=== PATIENT | female | born 1955 | race Caucasian/White ===

== ENCOUNTER 2024-07-30 14:54 | Inpatient (IN) ==
[2024-07-30 17:50] LABS: Basophils # (auto) 0.03 K/uL (0.00-0.20); Basophils % (auto) 0.2 %; Eosinophils # (auto) 0.08 K/uL (0.00-0.50); Eosinophils % (auto) 0.6 %; Hematocrit (blood only) 43.1 % (37.0-47.0); Hemoglobin 13.8 g/dl (12.0-16.0); Immature Granulocytes # (auto) 0.08 K/uL (0.01-0.20); Immature Granulocytes % (auto) 0.6 %; Lymphocytes # (auto) 2.13 K/uL (1.20-3.40); Lymphocytes % (auto) 14.8 %; Mean Corpuscular Hemoglobin 28.6 pg (25.0-34.0); Mean Corpuscular Volume 89.4 fL (80.0-100.0); Mean Platelet Volume 9.5 fL (9.4-12.4); Monocytes # (auto) 0.56 K/uL (0.11-0.59); Monocytes % (auto) 3.9 %; Neutrophils # (auto) 11.49 K/uL (1.40-6.50); Neutrophils % (auto) 79.9 %; Platelet Count 281 K/uL (130-400); RDW Coefficient of Variation 16.1 % (11.5-14.5); RDW Standard Deviation 52.2 fL (36.4-46.3); Red Blood Count 4.82 M/uL (4.20-5.40); White Blood Count 14.37 K/ul (4.8-10.8)
[2024-07-30 18:08] LABS: Albumin Globulin Ratio 1.3 (0.9-2); Albumin Level 4.1 gm/dl (3.4-5.0); Bilirubin,Total 0.5 mg/dl (0.2-1.0); Calcium 9.8 mg/dl (8.6-10.3); Creatinine Clr Calc Pharmacy 99.8 ml/min; Globulin 3.2 gm/dl (2.5-4.0); Potassium 4.1 mmol/L (3.5-5.1); Total Protein 7.3 gm/dl (6.0-8.3)
--- NOTE | 2024-07-30 19:45 | XRay Report ---
Exam(s): XR RIGHT HAND, 2 views EXAM: XR Right Hand, 2 Views CLINICAL HISTORY: Reason for exam: R index finger injury. TECHNIQUE: Frontal and lateral views of the right hand. COMPARISON: No relevant prior studies available. FINDINGS: Bones/joints: No fracture or malalignment. Degenerative changes at the first CMC joint. Soft tissues: Soft tissue wound to the tip of the second finger. No radiopaque foreign body. IMPRESSION: 1. Soft tissue wound to the tip of the second finger. No radiopaque foreign body. 2. No fracture or malalignment. Electronically signed by: Liborio Mcpherson MD 07/30/24 19:44 PM
[2024-07-30] MEDS: ceFAZolin 2000MG 2,000 MG/15 ML SYR IV STA (19:53)
--- NOTE | 2024-07-30 20:45 | History & Physical Report ---
Date of Service July 30, 2024 Assessment & Plan (1) Cellulitis of finger of right hand: (2) Laceration of right index finger: (3) Diabetes mellitus, type 2: (4) HMG-CoA myositis: (5) Hypertension: (6) Hyperlipidemia: (7) Hypothyroidism: Plan: Possible sepsis. Meets SIRS criteria HPI, ROS, PE, PMH, Social history, med rec completed by RICARDO Byrd Assessment and Plan per Dr Xiao. See addendum. 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 Patient reports approximately 1 week ago cut her finger on food technologist blade. States cleaned area with soap and water and applied with Vaseline and dressing. States 4 days ago started to have drainage from laceration site and noted erythema and edema to finger. Erythema and edema have progressed and has noted red streaking up her arm. States finger is minimally tender, worse with palpation. Has limited ROM of right index finger since finger started swelling. Denies fever/chills, diaphoresis, N/V/D/C, CASTREJON, dizziness, CP, SOB, palpitations, cough, rhinorrhea, abdominal pain, paresthesias, weakness, BLE extremity edema, other rashes, urinary symptoms. In ER given tetanus shot, doxycycline, Ancef. Allergies Allergy/AdvReac Type Severity Reaction Status Date / Time [id number] Reductase Allergy Intermediate Muscle Pain Verified 07/03/24 08:57 Inhibitor Influenza Virus Vaccines AdvReac Intermediate Gastrointestinal Verified 07/30/24 19:57 Upset Home Medications Medication Instructions Recorded Confirmed Type ascorbic acid (vitamin C) 250 mg 250 mg PO QAM 06/12/24 07/30/24 History tablet (Vitamin C) cholecalciferol (vitamin D3) 25 25 mcg PO DAILY 06/12/24 07/30/24 History mcg (1,000 unit) chewable tablet (Vitamin D3) cyanocobalamin (vitamin B-12) 100 100 mcg PO DAILY 06/12/24 07/30/24 History mcg tablet ezetimibe 10 mg tablet 10 mg PO PM 06/12/24 07/30/24 History folic acid 1 mg tablet 1 mg PO QAM 06/12/24 07/30/24 History inclisiran 284 mg/1.5 mL 1.5 mg subcut UD 06/12/24 07/30/24 History subcutaneous syringe (Leqvio) levothyroxine 75 mcg tablet 75 mcg PO QAM 06/12/24 07/30/24 History losartan 50 mg tablet 50 mg PO QAM 06/12/24 07/30/24 History omeprazole 20 mg tablet,delayed 20 mg PO QAM 06/12/24 07/30/24 History release glipizide 5 mg tablet 2.5 mg PO .DAILY W/ PREDNISONE 07/30/24 07/30/24 History metformin 500 mg tablet,extended 1,000 mg PO QDD 07/30/24 07/30/24 History release 24 hr methotrexate sodium 2.5 mg tablet 15 mg PO WK 07/30/24 07/30/24 History oxybutynin chloride 5 mg 5 mg PO QAM 07/30/24 07/30/24 History tablet,extended release 24 hr prednisone 20 mg tablet 20 mg PO QAM 07/30/24 07/30/24 History Past Med/Surg History Problem List Laceration of right index finger Cellulitis of finger of right hand Medical History HMG-CoA myositis Overactive bladder 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 per pt, no stroke hx > no cane or walker History of COVID-19 Diabetes mellitus, type 2 Hypothyroidism GERD (gastroesophageal reflux disease) Hyperlipidemia Hypertension Surgical History Hx of cataract extraction right History of esophagogastroduodenoscopy (EGD) History of colonoscopy History of section x3 Hx of gastric bypass History of tooth extraction History of tonsillectomy Family History Father Hypertension Social History Smoking Status: Never smoker Second Hand Exposure: No; Do You Dip or Chew Tobacco: No; Hx Alcohol Use: No Hx Substance Use: No Preferred Language: Albanian Communication Ability: Effective Technician Automated Equipment Required: No Beliefs That Will Affect Care: None Current Living Situation: Spouse Feels Safe at Home: Yes Assistive Devices: None Review of Systems Review of Systems: All systems reviewed & are unremarkable except as noted in HPI & below Physical Exam Physical Exam: General: no distress, obese Head: normocephalic, atraumatic Eyes: conjunctiva non-injected, anicteric ENT: normal inspection external ears, nose, mucous membranes moist Neck: supple, trachea midline Lungs: clear, no respiratory distress, no wheezing/rhonchi/rales CV: tachycardia, rate 104, regular rhythm, no murmur, no pretibial edema Abd: protuberant, normal BS, soft, non-tender Ext: RUE: Right hand: index finger with diffuse edema and erythema, dorsal surface over DIP with open laceration with purulent drainage, +red streaking up dorsal surface wrist and up forearm, limited flexion and extension of DIP and PIP joints of index finger. Remaining fingers with normal appearance. LE without no cyanosis, no calf tenderness Neuro: A&O x 3, no focal deficits noted, normal affect Skin: warm, dry. as above in right hand Results & Data Results & Data Vital Signs (Past 12 Hours) Vital Signs Temp Pulse Resp BP Pulse Ox O2 Del Method 07/30/24 20:17 101 H 07/30/24 15:08 36.6 C 99 H 18 148/92 H 97 Room Air Laboratory Results Short CBC 07/30/24 Range/Units 17:36 WBC 14.37 H (4.8-10.8) K/ul Hgb 13.8 (12.0-16.0) g/dl Hct 43.1 (37.0-47.0) % Plt Count 281 (130-400) K/uL BMP 07/30/24 17:36 Sodium 141 Potassium 4.1 Chloride 107 Carbon Dioxide 25 BUN 18 Creatinine 0.62 Glucose 157 H Calcium 9.8 Liver Function 07/30/24 Range/Units 17:36 Total Bilirubin 0.5 (0.2-1.0) mg/dl AST 15 (13-39) U/L ALT 25 (7-52) U/L Alkaline Phosphatase 68 (34-104) U/L Albumin 4.1 (3.4-5.0) gm/dl Diagnostic Findings Hand X-Ray 07/30/24 18:05 Exam(s): XR RIGHT HAND, 2 views EXAM: XR Right Hand, 2 Views CLINICAL HISTORY: Reason for exam: R index finger injury. TECHNIQUE: Frontal and lateral views of the right hand. COMPARISON: No relevant prior studies available. FINDINGS: Bones/joints: No fracture or malalignment. Degenerative changes at the first CMC joint. Soft tissues: Soft tissue wound to the tip of the second finger. No radiopaque foreign body. IMPRESSION: 1. Soft tissue wound to the tip of the second finger. No radiopaque foreign body. 2. No fracture or malalignment. Electronically signed by: Liborio Mcpherson MD 07/30/24 19:44 PM Supervising Physician Co-Signing Physician Notes IM ATTENDING : Patient seen and examined. History obtained from patient and records. Concur with salient points upon review of preceding documentation by Ms. Jessica Chaidez PA-C. I take responsibility for plan of care below. FINAL ASSESSMENT AND PLAN as follows : Sepsis secondary to traumatic right finger cellulitis Immunocompromised patient, history of polymyositis on methotrexate and chronic steroid Rx (decreased nightly steroid dose contemplated next month as per patient on follow-up with specialist) Rule out abscess Hypertension, slightly elevated DM2 on oral medications, well-controlled as of recent outpatient hemoglobin A1c of 7 last June 2024 NAFLD Hyperlipidemia/statin intolerance/allergy Hypothyroidism euthyroid as of recent outpatient TSH MedSurg CS, doxycycline, Zosyn CT hand Orthopedics consult Re: Infected wound right finger N.p.o. after midnight in anticipation of procedure. Hold methotrexate for now given active infection. Continue current nightly prednisone dose at 20 mg (Will request AM provider to contact Dr. Ramos of [facility] in a.m. to inquire about possibly initiating contemplated decrease in daily steroid dose regimen inpatient and consideration of active infection.) Basal bolus insulin adjusted for n.p.o. status, ISS BG goal 1 10-1 40 DVT prophylaxis. SCDs re: possible procedure Full code Text document was generated using [employer] voice recognition software. It may contain grammatical or spelling errors. Kindly contact undersigned for clarification of any documentation item in question. .
[2024-07-30] MEDS: DOXYCYCLINE HYCLATE 100 MG in DEXTROSE 5% MINI-B 100 ML IV STA (21:00)
[2024-07-30] MEDS: DIPHTHERIA/TETANUS TOX ADSORB VACCINE (Td) 0.5 ML SYR/VIAL IM ONE (21:01)
--- OUTSIDE RECORDS SUMMARY | 2024-07-30 21:35 | External Medical Summary | Summary of Care ---
Author Name Unknown Organization [facility] Address [address] [place] [address] Phone [phone] Care Team Providers Care Health Care Administrator Name Role Phone Ronny Jaimes MD Primary Care Provider + Reason for Visit * Reason Comments eRx-Medication Refill Encounter Details Date Type Department Care Team (Late st Contact Info) Description 07/07/2024 Refill General Internal Medicine [facility] [address] [facility] [place] [id number] Ronny Jaimes MD [address] [facility] [place] [id number] HTN, goal below 140/90 Allergies Active Allergy Reactions Criticality Noted Date Comments Influenza Virus Vaccine Nausea/vomiting 018 Statins Muscle pain High 12/22/2023 +ab documented as of this encounter (statuses as of 07/09/2024) Medications Cholecalciferol (VITAMIN D) 2000 units TabletIndication s:Vitamin D deficiency Take 2,000 Units by mouth at bedtime. 03/16/20 17 Active Cyanocobalamin (B-12) 1000 MCG TABS Take 1 Tab by mouth daily. 30 Tab 04/11/20 18 Active OneTouch Verio w/Device KitIndications:T ype 2 diabetes mellitus with hemoglobin A1c goal of less than 7.0% ([facility]) Use to check sugars fasting in am, 2 hours after lunch and in evening 1 Kit 12/20/19 24 Active OneTouch Verio In Vitro Strip (Glucose Blood)Indication s:Type 2 diabetes mellitus with hemoglobin A1c goal of less than 7.0% (HCC) Use to check sugars fasting in am, 2 hours after lunch and in evening E11.9 100 Strip 11 12/20/19 24 Active OneTouch UltraSoft LancetsIndicatio ns:Type 2 diabetes mellitus with hemoglobin A1c goal of less than 7.0% (HCC) Use to check sugars fasting in am, 2 hours after lunch and in evening 100 Each 1 12/20/19 24 Active 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 90 Tablet 3 12/28/19 24 Active Vitamin C Gummies 125 MG Oral Tablet Chewable (Ascorbic Acid) Take 2 Each by mouth every morning. Active Methotrexate 2.5 MG Oral TabletIndication s:HMG-CoA myositis Take 6 (15mg) tablets once a week 72 Tablet 3 01/24/20 24 Active Omeprazole 20 MG Oral Capsule Delayed Release (PriLOSEC)Indica tions:Belching TAKE 1 CAPSULE BY MOUTH 1 HOUR BEFORE THE FIRST MEAL OF THE DAY 90 Capsule 1 02/08/20 24 Active metFORMIN HCl ER 500 MG Oral Tablet Extended Release 24 Hour (Glucophage XR)Indications:T ype 2 diabetes mellitus with hemoglobin A1c goal of less than 7.0% (HCC) Take 1 Tablet by mouth daily with dinner. 90 Tablet 1 03/16/20 24 Active Ezetimibe 10 MG Oral Tablet (Zetia) Take 1 Tablet by mouth daily. 90 Tablet 3 04/25/20 24 Active Leqvio 284 MG/1.5ML Subcutaneous Solution Prefilled Syringe (Inclisiran Sodium) 05/01/20 24 Active Levothyroxine Sodium 75 MCG Oral Tablet (Levoxyl)Indicat ions:Hypothyroid ism TAKE 1 TABLET BY MOUTH EVERY DAY AT LEAST 30 MIN BEFORE BREAKFAST OR OTHER MEDICATION 30 Tablet 11 05/04/20 24 Active oxyBUTYnin Chloride ER 5 MG Oral Tablet Extended Release 24 Hour (Ditropan XL)Indications:S tress incontinence TAKE 1 TABLET BY MOUTH EVERY DAY IN THE MORNING 90 Tablet 1 05/31/20 24 Active predniSONE 20 MG Oral Tablet (Deltasone)Indic ations:HMG-CoA myositis Take 1 Tablet by mouth in the morning. 90 Tablet 1 06/11/20 24 Active glipiZIDE 5 MG Oral Tablet (Glucotrol)Indic ations:Type 2 diabetes mellitus with hemoglobin A1c goal of less than 7.0% (HCC) Take 1 Tablet by mouth daily. With prednisone 90 Tablet 1 06/26/20 24 Active Losartan Potassium 50 MG Oral Tablet (Cozaar)Indicati ons:HTN, goal below 140/90 TAKE 1 TABLET BY MOUTH EVERY DAY 90 Tablet 3 07/09/20 24 Active Losartan Potassium 50 MG Oral Tablet (Cozaar)Indicati ons:HTN, goal below 140/90 TAKE 1 TABLET BY MOUTH EVERY DAY 90 Tablet 3 07/14/20 23 024 Discontinued documented as of this encounter (statuses as of 07/09/2024) Active Problems Problem Noted Date Diagnosed Date PVC (premature ventricular contraction) 01/18/20 24 Statins contraindicated 01/18/2024 Statin-induced myositis 01/18/2024 DDD (degenerative disc disease), lumbar 05/18/20 GIL (nonalcoholic steatohepatitis) 11/02/2022 Stress incontinence 04/23/2021 Acquired hypothyroidism 04/22/2020 Essential hypertension with goal blood pressure less than 130/80 09/21/2018 Hyperlipidemia with target LDL less than 70 08/01 Vitamin B12 deficiency 04/11/2018 Type 2 diabetes mellitus wit h hemoglobin A1c goal of less than 7.0% 03/22/2017 documented as of this encounter (statuses as of 07/09/2024) Resolved Problems Problem Noted Date Diagnosed Date Resolved Date History of 2019 novel busch virus disease (COVID-19) 10/20/2020 11/28/2023 Fatty liver 04/22/2020 11/02/2022 Epistaxis, recurrent 05/06/2016 019 Acquired deviated nasal septum 05/06/2016 04/03/2019 Generalized osteoarthritis 05/06/2014 0 04/03/2019 Osteoarthrosis, localized, p rimary, involving lower leg 05/06/2014 04/03/2019 Overview (05/04/2021): ICD-10 update of inactive term Osteoarthritis of hand 05/06/201404/03 Hyperlipidemia with target LDL less than 130 3 08/10/2018 Hypothyroidism 01/18/2013 04/22/2020 documented as of this encounter (statuses as of 07/09/2024) Immunizations Name Administration Dates Next Due COVID-19 mRNA, LNP-s, No Pre serve, 2-Dose Series (Moderna) 11/20/2020,10/23/2020 COVID-19, mRNA, LNP-s, PF, B ooster, 100mcg/0.5mg (Moderna) 07/14/2021 Hepatitis B, 20+ yrs 10/21/2009,04/29/2009,03/25 PPD 04/09/2024 TDAP (age 10 and older)(Boostrix) 02/15/2014 Zoster Vaccine Recombinant (Shingrix) 08/04/2021 ,04/23/2021 documented as of this encounter Social History Tobacco Use Types Packs/Day Years Used Date Smoking Tobacco: Never Passive Smoke Exposure: Past Smokeless Tobacco: Never Comments:Passive smoke throu gh father Alcohol Use Standard Drinks/Week Comments No 0 (1 standard drink = 0.6 oz pur e alcohol) PHQ-2 Answer Date Recorded PHQ Adult Total Score 0 11/28/2023 Hunger Vital Sign Answer Date Recorded Within the past 12 months, y ou worried that your food would run out before you got the money to buy more. Never true 12/28/19 24 Within the past 12 months, t he food you bought just didn't last and you didn't have money to get more. Never true 12/28/2023 Childcare Answer Date Recorded Do you feel overwhelmed with taking care of a child, family member or friend? No 12/28/2023 Does your family need help f inding childcare? (Household - for ages 0-17 years) Not on file 12/28/2023 Clothing Answer Date Recorded Have you been unable to get clothing when it was really needed? No 12/28/2023 Is your family able to get c lothes or diapers when needed? (Household - for ages 0-17 years) Not on file 12/28/2023 Personal Safety Answer Date Recorded Do you feel unsafe or have concerns for your saf ety? No 12/28/2023 Do you have concerns for you r family's safety? (Household - for ages 0-17 years) Not on file 12/28/2023 Utilities Answer Date Recorded Do you have trouble paying y our heating, water, or electric bill? No 12/28/2023 Is your family able to pay t he heat, water, or electric bill? (Household - for ages 0-17 years) Not on file 12/28/2023 Does your family have access to good internet? (Household - for ages 0-17 years) Not on file 12/28/2023 Employment Status Answer Date Recorded Are you unemployed or without regular income? No 12/28/2023 Does the household have a re gular source of income? (Household - for ages 0-17 years) Not on file 12/28/2023 Social Connections Answer Date Recorded How often do you feel lonely or isolated from th ose around you? Never 12/28/2023 Financial Resource Strain Answer Date R ecorded Do you have any trouble payi ng for your medications, or do you think you might in the future? No 12/28/2023 Does your family have troubl e paying for medicine? (Household - for ages 0-17 years) Not on file 12/28/2023 Transportation Needs Answer Date Record ed READ ONLY Do you have troubl e getting a ride to medical visits or work? Never True 12/28/2023 Does your family have a hard time getting a ride to doctors visits? (Household - for ages 0-17 years) Not on file 12/28/2023 Has lack of transportation k ept you from medical appointments, meetings, work, or from getting things needed for daily living? Check all that apply. (Adult - for ages 18 years and over) Not on file 12/28/2023 Do you (or your family) have trouble finding or paying for a ride (transportation)? (Household - for ages 0-17 years) Not on file 12/28/2023 Housing Stability Answer Date Recorded Do you currently live in a s helter or have no steady place to sleep at night? Yes 12/28/2023 READ ONLY Do you think you a re at risk of becoming homeless? No 12/28/2023 Does your family worry about paying for your home or becoming homeless? (Household - for ages 0-17 years) Not on file 0 12/28/2023 Are you homeless or worried that you might be in the future? (Adult - for ages 18 years and over) Not on file Are you (or your family) osiel eless or worried that you might be in the future? (Household - for ages 0-17 years) Not on file Food Insecurity Answer Date Recorded Do you need food for this week? No 12/28/2023 Are you able to get enough f ood for your family? (Household - for ages 0-17 years) Not on file 12/28/2023 Does your family need food t his week? (Household - for ages 0-17 years) Not on file 12/28/2023 Do you always have enough fo od for your family? 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 [employer] Not on file Not on file Not on file documented as of this encounter Miscellaneous Notes * Telephone Encounter - Sola Avina [facility] - 07/09/2024 10:35 AM EST Signed Prescriptions: Disp Refills Losartan Potassium 50 MG Oral Tablet (Coza*90 Tab*3 Sig: TAKE 1 TABLET BY MOUTH EVERY DAYAuthorizing Provider: RONNY JAIMES User: SOLA AVINA documented in this encounter Plan of Treatment Upcoming Encounters Date Type Department Care Team (Late st Contact Info) Description 07/12/2024 4:00 PM EST Office Visit General Internal Medicine [facility] [place] [address] [place] [address] Michelle Murillo PA-C [address] [place] [address] 07/20/2024 7:00 AM EST Telemedicine Pharmacy [facility] [address] [place] [address] Pharmacist2, [facility] [address] [place] [address] 08/08/2024 2:15 PM EST Cardiac Studies Cardiac Studies, [facility] [address] [facility] [place] [address] 08/21/2024 8:00 AM EST Office Visit Neurology [facility] [address] [place] [address] Man Ramos, DO [address] [place] [address] 09/13/2024 7:15 AM EST Pharmacy Neurology [facility], [place] [address] [place] [address] [place], Pharmacist Neurology [address], [place] [id number] 09/25/2024 8:00 AM EST Telemedicine Cardiology [facility], [place] [address] [place] [address] [place] [address], Pharmacist Cardiology [facility] [address], [place] [id number] 10/11/2024 8:00 AM EDT Office Visit Cardiology, [facility] [address] [facility] [place] [address] Sara Lunsford PA-C [address] [facility] [place] [address] 03/07/2025 8:15 AM EDT Imaging Radiology [facility] [address] [facility] [place] [address] Health Maintenance Due Date Last Done Comments DXA Scan 1955 Pneumococcal Vaccine: 65+ Years (1 of 2 - PCV) 1961 Cologuard 02/26/2000 Colonoscopy 02/26/2000 Colorectal Cancer Screening 02/26/2000 Fecal Occult Blood Test 02/26/2000 Sigmoidoscopy 02/26/2000 Adult Wellness Visit 2021 Mammogram 11/11/2022 11/11/2021, 04/0 01/2021, 09/18/2019, Additional history exists DTap/Tdap Vaccines (2 - Td or Tdap) 02/16/2024 02/15/2014 COVID-19 Vaccine ( season) 2024 07/14/2021, 11/20/2020, 10/23/2020 Influenza Vaccine (FLU shot) (#1) 2024 Albumin/Creatinine Ratio 05/13/2024 023, 04/28/2022, 08/04/2021, Additional history exists Diabetic Foot Exam 05/18/2024 05/18/2023, 1 , 04/23/2021, Additional history exists Depression Screening 11/27/2024 11/28/2023 TSH 12/06/2024 12/07/2023, 05/01, 01/28/2023, Additional history exists HbA1c 12/10/2024 06/12/2024, 03/02, 03/13/2024, Additional history exists Diabetic Eye Exam 05/24/2025 05/24/2024, , 05/28/2023 (Done elsewhere), Additional history exists GFR 06/12/2025 06/12/2024, 03/02, 03/13/2024, Additional history exists Lipid Panel 03/13/2029 03/13/2024, 12/01, 07/07/2023, Additional history exists Hepatitis B Vaccine Completed 10/21/2009, 04/29/2009, 03/25/2009 Zoster Vaccines Completed 08/04/2021, 04/23/2021 HPV (Gardasil) Vaccine Aged Out No lo nger eligible based on patient's age to complete this topic MENINGOCOCCAL (MENACTRA/MENVEO) Aged Out No longer eligible based on patient's age to complete this topic documented as of this encounter Medical Devices Not on filedocumented as of this encounter Visit Diagnoses Diagnosis HTN, goal below 140/90 Unspecified essential hypertension documented in this encounter Care Teams Health Care Administrator Relationship Specialty Start Date End Date Ronny Jaimes MD [address] [place] [address] PCP - General Internal Medicine 01/18/13 documented as of this encounter
--- OUTSIDE RECORDS SUMMARY | 2024-07-30 21:35 | External Medical Summary | Summary of Care ---
Author Name Unknown Organization [facility] Address [address] [place] [address] Phone [phone] Care Team Providers Care Windsmith Name Role Phone Ronny Butts MD Primary Care Provider + Reason for Visit * Reason Comments Dosage Adjustment In Person (Anticoag Cl inic) Diabetes Follow-Up Encounter Details Date Type Department Care Team (Late st Contact Info) Description 07/20/2024 7:00 AM EST Telemedicine Pharmacy [address] [address] Pharmacist2, [address] [address] Type 2 diabetes mellitus with hemoglobin A1c goal of less than 7.0% ([facility])* Allergies Active Allergy Reactions Criticality Noted Date Comments Influenza Virus Vaccine Nausea/vomiting 018 Statins Muscle pain High 12/22/2023 +ab documented as of this encounter (statuses as of 07/20/2024) Medications Cholecalciferol (VITAMIN D) 2000 units TabletIndication s:Vitamin D deficiency Take 2,000 Units by mouth at bedtime. 7 Active Cyanocobalamin (B-12) 1000 MCG TABS Take 1 Tab by mouth daily. 30 Tab 8 Active OneTouch Verio w/Device KitIndications:T ype 2 diabetes mellitus with hemoglobin A1c goal of less than 7.0% (HCC) Use to check sugars fasting in am, 2 hours after lunch and in evening 1 Kit 4 Active OneTouch Verio In Vitro Strip (Glucose Blood)Indication s:Type 2 diabetes mellitus with hemoglobin A1c goal of less than 7.0% ([facility]) Use to check sugars fasting in am, 2 hours after lunch and in evening E11.9 100 Strip 11 4 Active OneTouch UltraSoft LancetsIndicatio ns:Type 2 diabetes mellitus with hemoglobin A1c goal of less than 7.0% ([facility]) Use to check sugars fasting in am, 2 hours after lunch and in evening 100 Each 1 4 Active 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 90 Tablet 3 4 Active Vitamin C Gummies 125 MG Oral Tablet Chewable (Ascorbic Acid) Take 2 Each by mouth every morning. Active Omeprazole 20 MG Oral Capsule Delayed Release (PriLOSEC)Indica tions:Belching TAKE 1 CAPSULE BY MOUTH 1 HOUR BEFORE THE FIRST MEAL OF THE DAY 90 Capsule 1 4 Active Ezetimibe 10 MG Oral Tablet (Zetia) Take 1 Tablet by mouth daily. 90 Tablet 3 4 Active Leqvio 284 MG/1.5ML Subcutaneous Solution Prefilled Syringe (Inclisiran Sodium) 4 Active Levothyroxine Sodium 75 MCG Oral Tablet (Levoxyl)Indicat ions:Hypothyroid ism TAKE 1 TABLET BY MOUTH EVERY DAY AT LEAST 30 MIN BEFORE BREAKFAST OR OTHER MEDICATION 30 Tablet 11 4 Active oxyBUTYnin Chloride ER 5 MG Oral Tablet Extended Release 24 Hour (Ditropan XL)Indications:S tress incontinence TAKE 1 TABLET BY MOUTH EVERY DAY IN THE MORNING 90 Tablet 1 4 Active predniSONE 20 MG Oral Tablet (Deltasone)Indic ations:HMG-CoA myositis Take 1 Tablet by mouth in the morning. 90 Tablet 1 4 Active Losartan Potassium 50 MG Oral Tablet (Cozaar)Indicati ons:HTN, goal below 140/90 TAKE 1 TABLET BY MOUTH EVERY DAY 90 Tablet 3 4 Active Methotrexate 2.5 MG Oral TabletIndication s:HMG-CoA myositis Take 6 (15mg) tablets once a week 72 Tablet 3 4 Active metFORMIN HCl ER 500 MG Oral Tablet Extended Release 24 Hour (Glucophage XR)Indications:T ype 2 diabetes mellitus with hemoglobin A1c goal of less than 7.0% (HCC) Take 2 Tablets by mouth daily with dinner. 180 Tablet 1 4 Active glipiZIDE 2.5 MG Oral TabletIndication s:Type 2 diabetes mellitus with hemoglobin A1c goal of less than 7.0% (HCC) Take 2.5 mg by mouth daily. With prednisone 30 Tablet 2 4 Active metFORMIN HCl ER 500 MG Oral Tablet Extended Release 24 Hour (Glucophage XR)Indications:T ype 2 diabetes mellitus with hemoglobin A1c goal of less than 7.0% (HCC) Take 1 Tablet by mouth daily with dinner. 90 Tablet 1 4 024 Discontin ued(Refil l) glipiZIDE 5 MG Oral Tablet (Glucotrol)Indic ations:Type 2 diabetes mellitus with hemoglobin A1c goal of less than 7.0% (HCC) Take 1 Tablet by mouth daily. With prednisone 90 Tablet 1 4 024 Discontin ued(Medic ation/Dos e Changed) documented as of this encounter (statuses as of 07/20/2024) Active Problems Problem Noted Date Diagnosed Date [...] as of this encounter (statuses as of 07/20/2024) Resolved Problems Problem Noted Date Diagnosed Date [...] as of this encounter (statuses as of 07/20/2024) Immunizations Name Administration Dates Next Due COVID-19 [...] No 12/28/2023 Does the household have a [facility] [place] source of income? 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 I was in a hospital or clinic location. After connecting through televideo, patient was verified with two unique identifiers. Patient (or authorized legal chain sales representative) wasthen informed that this was a Telemedicine visit and being conducted confidentially over secure lines. Methods to assure confidentiality were taken. Patient acknowledged consent and understanding of privacy and security of the Telemedicine visit. The patient agreed to participate. Medication Therapy Disease Management [facility] - Diabetes Management Progress Note Marcela Richards, identified by name and date of , is a 69 year old female being seen for diabetes management/education. Patient presents for return diabetic visit. DIABETES: Current diabetic medications: Glipizide 5mg - 1 tab in the evening with prednisone Metformin ER 500mg - 1 tab daily Medication Injection Site: N/A Lifestyle: Diet: unchanged Glucose Review/SMBG: Readings per patient memory/recall: Patient is currently testing 1-2 times a day Morning 80-90 After dinner 100-200 Hypoglycemia: Does your blood sugar go below 70 mg/dL? No Hyperglycemia symptoms present: none Recent Labs Units 06/12/24 0728 03/29/24 0949 03/13/24 0711 HEMOGLOBIN A1C - [facility] % 7.0* 7.5* 7.5* Recent Labs Units 06/12/24 0728 03/29/24 0949 03/13/24 0711 ESTIMATED GLOMERULAR FILTRATION RATE - [facility] mL/min >90 >90 >90 CREATININE - [facility] mg/dL 0.6 0.6 0.6 HYPERTENSION: Patient on ACEi/ARB: yes BP Readings from Last 3 Encounters: 07/12/24 114/80 06/05/24 116/76 04/05/24 124/64 Blood pressure at goal: yes HYPERLIPIDEMIA: Recent Labs Units 03/13/24 0711 12/29/23 0756 07/07/23 1048 LDL CHOLESTEROL (CALCULATED) - [facility] mg/dL 118 -- 66 LDL CHOLESTEROL (DIRECT MEASURE) - [facility] mg/dL -- 134* -- Does patient have clinical ASCVD? No, is patient LDL less than 70mg/dL? No: started Leqvio 05/01/24 The 10-year ASCVD risk score (Oscar REBOLLAR, et al., 2019) is: 15.7% Values used to calculate the score: Age: 69 years Sex: Female Is Non- : No Diabetic: Yes Tobacco smoker: No Systolic Blood Pressure: 114 mmHg Is BP treated: Yes HDL Cholesterol: 102 mg/dL Total Cholesterol: 244 mg/dL HEALTH MAINTENANCE REVIEW: Health Maintenance Due Topic Date Due DXA Scan Never done Pneumococcal Vaccine: 65+ Years (1 of 2 - PCV) Never done Colorectal Cancer Screening Never done Adult Wellness Visit Never done Mammogram 11/11/2022 DTap/Tdap Vaccines (2 - Td or Tdap) 02/16/2024 Influenza Vaccine (FLU shot) (1) Never done COVID-19 Vaccine ( season) 2024 Albumin/Creatinine Ratio 05/13/2024 Diabetic Foot Exam 05/18/2024 ASSESSMENT & PLAN: ICD-10-CM 1. Type 2 diabetes mellitus with hemoglobin A1c goal of less than 7.0% (HCC) E11.9 BG Readings - Blood sugars controlled. Per recall AM readings 80-100 and after dinner 100-200. Denies hypoglycemia. Last A1c improved to 7.0 (06/12/24)! Still taking prednisone 20mg daily. Next neurology appt in Aug. Medications - Reviewed current regimen, patient is adherent to regimen. Denies side effects. Increase metformin and reduce glipizide to correct lower trend in the AM. Patient educated to use and adverse effects. Diet, Exercise, Lifestyle - No significant lifestyle changes since last visit. Patient is agreeable to SMBG 1 time(s) daily. Patient aware to contact clinic if any hypoglycemia before next visit. MEDICATION CHANGES: yes, see below; preferred pharmacy: [facility] Diabetic Medications: Decrease: Glipizide 2.5mg - 1 tab in the evening with prednisone Increase: Metformin ER 500mg - 1 tab twice daily HEALTH MAINTENANCE INTERVENTIONS: Labs: Up to Date Immunizations: reminded Foot Exam: Complete with next PCP visit Eye Exam: Up to Date FOLLOW UP: Return to clinic in 2 mos 09/20/2024 I spent a total of 20-29 minutes (exact time 24 mins) on the date of service in preparation, delivery, and documentation of the care provided to Marcela Richards excluding any time spent in the performance of separately billed services. Maribel Gomez RPh Clinical Pharmacist - [employer] Medication Therapy Management Clinic 07/20/2024, 7:01 AM documented in this encounter Plan of Treatment Upcoming Encounters Date Type Department Care Team (Late st Contact Info) Description 08/07/2024 4:15 PM EST Imaging Radiology [facility] 1st [facility], [address] [place] [address] 08/08/2024 2:15 PM EST Cardiac Studies Cardiac Studies, [facility] [address] [facility] [place] [address] 08/21/2024 8:00 AM EST Office Visit Neurology [facility] [address] [place] [address] Man Ramos, DO [address] [place] [address] 09/13/2024 7:15 AM EST Pharmacy Neurology [place] [address] [place] [address] [place], Pharmacist Neurology [address] [place] [address] 09/20/2024 7:30 AM EST Telemedicine Pharmacy [facility] [address] [place] [address] Pharmacist2, [facility] [address] [place], [place] [phone] 09/25/2024 8:00 AM EST Telemedicine Cardiology [facility], [place] [address] [place], [place] [id number] [place] [address], Pharmacist Cardiology [facility] [address] [place] [address] 10/11/2024 8:00 AM EDT Office Visit Cardiology, [facility] 132 [facility] [place] [address] Sara Lunsford PA-C 132 [facility] [place] [address] 01/10/2025 4:00 PM EDT Office Visit General Internal Medicine [facility] [address] [place] [address] Michelle Murillo PA-C [address] [place] [address] 03/07/2025 8:15 AM EDT Imaging Radiology [facility] [place] [address] 04/18/2025 2:00 PM EDT Office Visit General Internal Medicine [facility] [place] [address] [facility] [place] [facility] [place] [address] Ronny Butts MD 200 [facility] [place] [address] Health Maintenance Due Date Last Done Comments DXA Scan 1955 Pneumococcal Vaccine: 65+ Years (1 of 2 - PCV) 1974 Cologuard 02/26/2000 Colonoscopy 02/26/2000 Colorectal Cancer Screening 02/26/2000 Fecal Occult Blood Test 02/26/2000 Sigmoidoscopy 02/26/2000 Adult Wellness Visit 2021 Mammogram 11/11/2022 11/11/2021, 0401/2021, 09/18/2019, Additional history exists DTap/Tdap Vaccines (2 [...] as of this encounter Visit Diagnoses Diagnosis Type 2 diabetes mellitus with hemoglobin A1c goal of less than 7.0% (HCC)- Primary documented in this encounter Care Teams Windsmith Relationship Specialty Start Date End Date Ronny Butts MD 200 [facility] [place] [address] PCP - General Internal Medicine 01/18/13 documented as of this encounter
--- OUTSIDE RECORDS SUMMARY | 2024-07-30 21:35 | External Medical Summary | Summary of Care ---
Author Name Unknown Organization [facility] Address [address] [place] [address] Phone [phone] Care Team Providers Care Casting Inspector Name Role Phone Ronny Butts MD Primary Care Provider + Reason for Visit * Reason Comments eRx-Medication Refill Encounter Details Date Type Department Care Team (Late st Contact Info) Description 07/08/2024 Refill Neurology [facility] [address] [place] [address] Man Ramos, DO [address] [facility] [address] HMG-CoA myositis Allergies Active Allergy Reactions Criticality Noted Date Comments Influenza Virus Vaccine Nausea/vomiting 018 Statins Muscle pain High 12/22/2023 +ab documented as of this encounter (statuses as of 07/09/2024) Medications Cholecalciferol (VITAMIN D) 2000 units TabletIndications :Vitamin D deficiency Take 2,000 Units by mouth at bedtime. 7 Active Cyanocobalamin (B-12) 1000 MCG TABS Take 1 Tab by mouth daily. 30 Tab 8 Active OneTouch Verio w/Device KitIndications:Ty pe 2 diabetes mellitus with hemoglobin A1c goal of less than 7.0% ([facility]) Use to check sugars fasting in am, 2 hours after lunch and in evening 1 Kit 4 Active OneTouch Verio In Vitro Strip (Glucose Blood)Indications :Type 2 diabetes mellitus with hemoglobin A1c goal of less than 7.0% (HCC) Use to check sugars fasting in am, 2 hours after lunch and in evening E11.9 100 Strip 11 4 Active OneTouch UltraSoft LancetsIndication s:Type 2 diabetes mellitus with hemoglobin A1c goal of less than 7.0% (HCC) Use to check sugars fasting in am, 2 hours after lunch and in evening 100 Each 1 4 Active Folic Acid 1 MG Oral TabletIndications :HMG-CoA myositis Take 1 Tablet by mouth in the morning. 90 Tablet 3 4 Active Vitamin C Gummies 125 MG Oral Tablet Chewable (Ascorbic Acid) Take 2 Each by mouth every morning. Active Methotrexate 2.5 MG Oral TabletIndications :HMG-CoA myositis Take 6 (15mg) tablets once a week 72 Tablet 3 4 Active Omeprazole 20 MG Oral Capsule Delayed Release (PriLOSEC)Indicat ions:Belching TAKE 1 CAPSULE BY MOUTH 1 HOUR BEFORE THE FIRST MEAL OF THE DAY 90 Capsule 1 4 Active metFORMIN HCl ER 500 MG Oral Tablet Extended Release 24 Hour (Glucophage XR)Indications:Ty pe 2 diabetes mellitus with hemoglobin A1c goal of less than 7.0% (HCC) Take 1 Tablet by mouth daily with dinner. 90 Tablet 1 4 Active Ezetimibe 10 MG Oral Tablet (Zetia) Take 1 Tablet by mouth daily. 90 Tablet 3 4 Active Leqvio 284 MG/1.5ML Subcutaneous Solution Prefilled Syringe (Inclisiran Sodium) 4 Active Levothyroxine Sodium 75 MCG Oral Tablet (Levoxyl)Indicati ons:Hypothyroidis m TAKE 1 TABLET BY MOUTH EVERY DAY AT LEAST 30 MIN BEFORE BREAKFAST OR OTHER MEDICATION 30 Tablet 11 4 Active oxyBUTYnin Chloride ER 5 MG Oral Tablet Extended Release 24 Hour (Ditropan XL)Indications:St ress incontinence TAKE 1 TABLET BY MOUTH EVERY DAY IN THE MORNING 90 Tablet 1 4 Active predniSONE 20 MG Oral Tablet (Deltasone)Indica tions:HMG-CoA myositis Take 1 Tablet by mouth in the morning. 90 Tablet 1 4 Active glipiZIDE 5 MG Oral Tablet (Glucotrol)Indica tions:Type 2 diabetes mellitus with hemoglobin A1c goal of less than 7.0% (HCC) Take 1 Tablet by mouth daily. 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 on file Not on file documented as of this encounter Miscellaneous Notes * Telephone Encounter - Christine Grider [facility] - 07/09/2024 2:54 PM ESTRefused Prescriptions: Disp Refills Methotrexate Sodium 2.5 MG Oral Tablet 72 Tab*3 Sig: TAKE 6 (15MG) TABLETS BY MOUTH ONCE A WEEK Refused By: CHRISTINE GRIDER Reason for Refusal: Too soon * Telephone Encounter - Ruby Dowell [facility] - 07/09/2024 2:52 PM ESTPending Prescriptions: Disp Refills Methotrexate Sodium 2.5 MG Oral Tablet [Ph*72 Tab*3 Sig: TAKE 6 (15MG) TABLETS BY MOUTH ONCE A WEEK documented in this encounter Plan of Treatment Upcoming Encounters Date Type Department Care Team (Late st Contact Info) Description 07/12/2024 4:00 PM EST Office Visit General Internal Medicine [facility] [address] [place] [address] Michelle Murillo PA-C [address] [place] [address] 07/20/2024 7:00 AM EST Telemedicine Pharmacy [facility] [address] [place], [place] [phone] Pharmacist2, [address] [phone] 08/08/2024 2:15 PM EST Cardiac Studies Cardiac Studies, [address] [place] [address] 08/21/2024 8:00 AM EST Office Visit Neurology [facility] [address] [place] [address] Man Ramos, DO 200 [place] [address] 09/13/2024 7:15 AM EST Pharmacy Neurology [address] [place] [address] [place] Pharmacist Neurology [address] [place] [address] [place] [phone] 09/25/2024 8:00 AM EST Telemedicine Cardiology [facility], [place] [address] [facility] [place] [phone] [place] Pharmacist Cardiology [facility] [place] [phone] 10/11/2024 8:00 AM EDT Office Visit Cardiology, [address] [place] [address] Sara Lunsford PA-C [address] [place] [address] 03/07/2025 8:15 AM EDT Imaging Radiology [facility] [address] [place] [address] Health Maintenance Due Date Last Done Comments DXA Scan 1955 Pneumococcal Vaccine: 65+ Years (1 of 2 - PCV) 1961 Cologuard 02/26/2000 Colonoscopy 02/26/2000 Colorectal Cancer Screening 02/26/2000 Fecal Occult Blood Test 02/26/2000 Sigmoidoscopy 02/26/2000 Adult Wellness Visit 2021 Mammogram 11/11/2022 11/11/2021, 01/2021, 09/18/2019, Additional history exists DTap/Tdap Vaccines (2 - Td or Tdap) 02/16/2024 02/15/2014 COVID-19 Vaccine ( - season) 2024 07/14/2021, 11/20/2020, 10/23/2020 Influenza Vaccine [...] as of this encounter Visit Diagnoses Diagnosis HMG-CoA myositis Mylagia and myositis, unspecified documented in this encounter Care Teams Casting Inspector Relationship Specialty Start Date End Date Ronny Butts MD 200 [facility] [address] PCP - General Internal Medicine 01/18/13 documented as of this encounter
--- OUTSIDE RECORDS SUMMARY | 2024-07-30 21:35 | External Medical Summary | Summary of Care ---
Author Name Unknown Organization [facility] Address [address] [place] [address] Phone [phone] Care Team Providers Care Electroplating Technician Name Role Phone Ronny Butst MD Primary Care Provider + Reason for Visit * Reason Onset Date Comments Order Request 07/12/2024 Encounter Details Date Type Department Care Team (Late st Contact Info) Description 07/12/2024 Telephone General Internal Medicine [facility] 200 [facility] [place] [phone] Michelle Murillo PA-C 200 [place] [address] Order Request Allergies Active Allergy Reactions Criticality Noted Date Comments Influenza Virus Vaccine Nausea/vomiting 018 Statins Muscle pain High 12/22/2023 +ab documented as of this encounter (statuses as of 07/16/2024) Medications Cholecalciferol (VITAMIN D) 2000 units TabletIndications :Vitamin D deficiency Take 2,000 Units by mouth at bedtime. 7 Active Cyanocobalamin (B-12) 1000 MCG TABS Take 1 Tab by mouth daily. 30 Tab 8 Active OneTouch Verio w/Device KitIndications:Ty pe 2 diabetes mellitus with hemoglobin A1c goal of less than 7.0% ([facility]) Use to check sugars fasting in [...] 3 4 Active Methotrexate 2.5 MG Oral TabletIndications :HMG-CoA myositis Take 6 (15mg) tablets once a week 72 Tablet 3 4 Active documented as of this encounter (statuses as of 07/16/2024) Active Problems Problem Noted Date Diagnosed Date [...] as of this encounter (statuses as of 07/16/2024) Resolved Problems Problem Noted Date Diagnosed Date [...] as of this encounter (statuses as of 07/16/2024) Immunizations Name Administration Dates Next Due COVID-19 [...] for ages 0-17 years) Not on file 05 / Food Insecurity Answer Date Recorded Do you [...] 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 Pended for cosign. * Telephone Encounter - Mahsa Driscoll OSA - 07/12/2024 5:03 PM EST Pt was seen and wants to schedule dexa, unable to schedule from ones on file. Can we have a new order. Mammogram was scheduled from past order. documented in this encounter Plan of Treatment Upcoming Encounters Date Type Department Care Team (Late st Contact Info) Description 07/20/2024 7:00 AM EST [facility] [place] [address] Pharmacist2, [facility] [address] [address] 08/07/2024 4:15 PM EST Imaging Radiology [address] [place] [address] 08/08/2024 2:15 PM EST Cardiac Studies Cardiac Studies, [facility] 132 [facility] [place] [address] 08/21/2024 8:00 AM EST Office Visit Neurology [facility] [address] [place] [address] Man Ramos, DO [address] [place] [address] 09/13/2024 7:15 AM EST Pharmacy Neurology [place] [address] [place] [address] [place], Pharmacist Neurology [address] [place] [address] 09/25/2024 8:00 AM EST Telemedicine Cardiology [facility], [place] [address] [place] [address] [facility] Cardiology [facility] [address] [place] [address] 10/11/2024 8:00 AM EDT Office Visit Cardiology, [facility] 132 [facility] [place] [address] Sara Lunsford PAJocelyn 132 [facility] [place] [address] 01/10/2025 4:00 PM EDT Office Visit General Internal Medicine [facility] [address] [place] [address] Michelle [place] PALoisC [address] [place] [address] 03/07/2025 8:15 AM EDT Imaging Radiology [facility] 132 [facility] [place] [address] 04/18/2025 2:00 PM EDT Office Visit General Internal Medicine [facility] [place] 200 [facility] [place], [place] [address] Ronny Butts MD 200 [facility] [place] [address] Scheduled Orders Name Type Priority Associated Diagnoses Orde r Schedule DEXA SCAN/BONE MINERAL AXIAL Medical Imaging Routine Screening for osteoporosis Expected: 07/14/2024, Expires: 08/13/2025 Health Maintenance Due Date Last Done Comments DXA Scan 1955 Pneumococcal Vaccine: 65+ Years (1 of 2 - PCV) 1961 Cologuard 02/26/2000 Colonoscopy 02/26/2000 Colorectal Cancer Screening 02/26/2000 Fecal Occult Blood Test 02/26/2000 Sigmoidoscopy 02/26/2000 Adult Wellness Visit 2021 Mammogram 11/11/2022 11/11/2021, 04/01/2021, 09/18/2019, Additional history exists DTap/Tdap Vaccines (2 [...] as of this encounter Visit Diagnoses Diagnosis Screening for osteoporosis- Primary Special screening for osteoporosis documented in this encounter Care Teams Electroplating Technician Relationship Specialty Start Date End Date Ronny Butts MD [address] [place] [address] PCP - General Internal Medicine 01/18/13 documented as of this encounter
--- OUTSIDE RECORDS SUMMARY | 2024-07-30 21:35 | External Medical Summary | Summary of Care ---
Author Name Unknown Organization [facility] Address [address] [facility] [place] [address] Phone [phone] Care Team Providers Care Grinder Operator Name Role Phone Ronny Butts MD Primary Care Provider + Reason for Visit * Reason Comments Follow Up 6 month follow up. D enies any new concerns today. Encounter Details Date Type Department Care Team (Late st Contact Info) Description 07/12/2024 4:00 PM EST Office Visit General Internal Medicine [facility] [address] [facility] [place] [id number] Michelle Murillo PA-C [address] [facility] [place] [id number] Type 2 diabetes mellitus with hemoglobin A1c goal of less than 7.0% ([facility])*; Hyperlipidemia with target LDL less than 70; Acquired hypothyroidism; Essential hypertension with goal blood pressure less than 130/80; Statin-induced myositis; Statins contraindicated; GIL (nonalcoholic steatohepatitis); Vitamin B12 deficiency; Special screening for malignant neoplasms, colon Allergies Active Allergy Reactions Criticality Noted Date Comments Influenza Virus Vaccine Nausea/vomiting 018 Statins Muscle pain High 12/22/2023 +ab documented as of this encounter (statuses as of 07/12/2024) Medications Cholecalciferol (VITAMIN D) 2000 units TabletIndication [...] 4 Active glipiZIDE 5 MG Oral Tablet (Glucotrol)Indic [...] a week 72 Tablet 3 4 Active Prolensa 0.07 % Ophthalmic Solution INSTILL 1 DROP INTO THE RIGHT EYE STARTING 3 DAYS PRIOR TO SURGERY & USE POST-OP FOR 4 WEEKS 4 024 Discontin ued(Medic ation List Clean Up) Moxifloxacin HCl 0.5 % Ophthalmic Solution (Vigamox) PLEASE SEE ATTACHED FOR DETAILED DIRECTIONS 4 024 Discontin ued(Medic ation List Clean Up) prednisoLONE Acetate 1 % Ophthalmic Suspension (Pred Forte) PLEASE SEE ATTACHED FOR DETAILED DIRECTIONS 4 024 Discontin ued(Medic ation List Clean Up) documented as of this encounter (statuses as of 07/12/2024) Active Problems Problem Noted Date Diagnosed Date PVC (premature ventricular contraction) 01/18/20 24 Statins contraindicated 01/18/2024 Statin-induced myositis 01/18/2024 DDD (degenerative disc disease), lumbar 05/18/20 23 GIL (nonalcoholic steatohepatitis) 11/02/2022 Stress incontinence 04/23/2021 Acquired hypothyroidism 04/22/2020 Essential hypertension with goal blood pressure less than 130/80 09/21/2018 Hyperlipidemia with target LDL less than 70 08/01 Vitamin B12 deficiency 04/11/2018 Type 2 diabetes mellitus wit h hemoglobin A1c goal of less than 7.0% 03/22/2017 documented as of this encounter (statuses as of 07/12/2024) Resolved Problems Problem Noted Date Diagnosed Date [...] as of this encounter (statuses as of 07/12/2024) Immunizations Name Administration Dates Next Due COVID-19 [...] No 12/28/2023 Does the household have a [facility] source [facility] income? 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 History of Present Illness Marcela Richards is a 69 year old female that presents for Follow Up (6 month follow up. Denies anynew concerns today. ) Pt here today for a routine 6 month f/up of chronic medical conditions. Recent labs showing improved A1c of 7.0. CK and LFTs have returned to normal. Pt feeling so much better. Continues to follow with neuro for myositis and with cardio for lipid management given the statin contraindication. Pt also continues PT with good benefit. Pt has orders placed for DEXA and mammo--is willing to schedule these. Do not see that pt has had CRC screening--is agreeable to cologuard. Pt allergic to flu vac and declines all other vaccines today. Denies recent fever/chills, chest pain, SOB, change in bowels, or urinary symptoms. Review of Systems: See HPI for pertinent positives. All other review of systems is negative. Physical Exam Vitals: 07/12/24 1615 Temp: 96.9 F (36.1 C) Pulse: 88 SpO2: 98% BP: 114/80 Physical Exam Constitutional: General: She is not in acute distress. Appearance: She is not diaphoretic. HENT: Right Ear: Tympanic membrane, ear canal and external ear normal. Left Ear: Tympanic membrane, ear canal and external ear normal. Mouth/Throat: Mouth: Mucous membranes are moist. Pharynx: Oropharynx is clear. Cardiovascular: Rate and Rhythm: Normal rate and regular rhythm. Pulmonary: Effort: Pulmonary effort is normal. Breath sounds: Normal breath sounds. Abdominal: General: Bowel sounds are normal. Palpations: Abdomen is soft. Musculoskeletal: Cervical back: Normal range of motion and neck supple. Skin: General: Skin is warm and dry. Neurological: General: No focal deficit present. Mental Status: She is alert. Mental status is at baseline. I have reviewed the following results: Assessment and Plan Type 2 diabetes mellitus with hemoglobin A1c goal of less than 7.0% (HCC) Adequately controlled. Continue to follow with [facility] pharm. Continue current meds. Monitor labs before next visit. - ALBUMIN / CREATININE RATIO, URINE; Future - COMPREHENSIVE METABOLIC PANEL; Future - HEMOGLOBIN A1C; Future Hyperlipidemia with target LDL less than 70 Continue to follow with cardio for lipid management. Monitor labs before next visit. - LIPID PANEL WITH DIRECT LDL IF TG IS HIGH; Future Acquired hypothyroidism Continue current dose of levothyroxine. Check TSH prior to next visit. - TSH WITH FREE T4 IF INDICATED; Future Essential hypertension with goal blood pressure less than 130/80 Stable. Continue current meds. - COMPREHENSIVE METABOLIC PANEL; Future Statin-induced myositis Continue to follow with neurology routinely. Statins contraindicated GIL (nonalcoholic steatohepatitis) LFTs normal. Vitamin B12 deficiency Monitor level. Continue current supplement. - VITAMIN B12; Future Special screening for malignant neoplasms, colon Cologuard ordered. - COLOGUARD Wrap-Up Follow Up: Return in about 6 months (around 01/10/2025) for Return with Physician, Fasting Labs 2-5 Days Before Next Visit. | For: Return with Physician, Fasting Labs 2-5 Days Before Next Visit | Check-out note: Please also schedule screening mammo and DEXA for the pt. Orders already in from previous encounters. Time: I spent a total of 30-39 minutes (exact time 32 mins) on the date of service in preparation, delivery, and documentation of the care provided to Marcela Richards excluding any time spent in the performance of separately billed services. documented in this encounter Nursing Notes * Ingrid Ly MED ASSIST - 07/12/2024 4:18 PM EST Chief Complaint Patient presents with Follow Up 6 month follow up. Denies any new concerns today. Patient has been verbally educated on the need or importance of Colon Cancer Screening, Diabetic Foot Exam, Flu Vaccine, Pneumococcal Vaccine, and Tdap Vaccine and has declined topic(s). Patient allergic to flu vaccine. documented in this encounter Plan of Treatment Upcoming Encounters Date Type Department Care Team (Late st Contact Info) Description 07/20/2024 7:00 AM EST Telemedicine Pharmacy [facility] [address] [place] [address] Pharmacist2, [address] [address] 08/07/2024 4:15 PM EST Imaging Radiology [facility] [address] [facility] [address] [facility] [place] [address] 08/08/2024 2:15 PM EST Cardiac Studies Cardiac Studies, [address] [place] [address] 08/21/2024 8:00 AM EST Office Visit Neurology [facility] [address] [place] [address] Man Ramos, DO [address] [place] [address] 09/13/2024 7:15 AM EST Pharmacy Neurology [address] [place] [phone] Ignacio, Pharmacist Neurology [address] [place], [place] [phone] 09/25/2024 8:00 AM EST Telemedicine Cardiology [facility] [place] [address] [place] [address] Kallie, Pharmacist Cardiology [facility] [address] [place] [address] 10/11/2024 8:00 AM EDT Office Visit Cardiology, [facility] [address] [facility] [place] [address] Sara Lunsford PA-C 132 [facility] [place] [address] 01/10/2025 4:00 PM EDT Office Visit General Internal Medicine [facility] 200 [facility] [place] [address] Michelle Murillo PA-C [address] [facility] [place] [address] 03/07/2025 8:15 AM EDT Imaging Radiology [facility] [address] [facility] [place] [address] 04/18/2025 2:00 PM EDT Office Visit General Internal Medicine [facility] [address] [facility] [place] [address] Ronny Butts MD [address] [facility] [place] [address] Scheduled Orders Name Type Priority Associated Diagnoses Orde r Schedule ALBUMIN / CREATININE RATIO, URINE Lab Routine Type 2 diabetes mellitus with hemoglobin A1c goal of less than 7.0% (HCC) Expected: 01/10/2025, Expires: 07/12/2025 COMPREHENSIVE METABOLIC PANEL Lab Routine Type 2 diabetes mellitus with hemoglobin A1c goal of less than 7.0% (HCC) Essential hypertension with goal blood pressure less than 130/80 Expected: 01/10/2025 (Approximate), Expires: 07/12/2025 HEMOGLOBIN A1C Lab Routine Type 2 diabetes mellitus with hemoglobin A1c goal of less than 7.0% (HCC) Expected: 01/10/2025 (Approximate), Expires: 07/12/2025 LIPID PANEL WITH DIRECT LDL IF TG IS HIGH Lab Routine Hyperlipidemia with target LDL less than 70 Expected: 01/10/2025, Expires: 07/12/2025 TSH WITH FREE T4 IF INDICATED Lab Routine Acquired hypothyroidism Expected: 01/10/2025 (Approximate), Expires: 07/12/2025 VITAMIN B12 Lab Routine Vitamin B12 deficiency Expected: 01/10/2025 (Approximate), Expires: 07/12/2025 COLOGUARD Lab Unrestricted Lab Special screening for malignant neoplasms, colon Ordered: 07/12/2024 Health Maintenance Due Date Last Done Comments DXA Scan 1955 Pneumococcal Vaccine: 65+ Years (1 of 2 - PCV) 1961 Cologuard 02/26/2000 Colonoscopy 02/26/2000 Colorectal Cancer Screening 02/26/2000 Fecal Occult Blood Test 02/26/2000 Sigmoidoscopy 02/26/2000 Adult Wellness Visit 2021 Mammogram 11/11/2022 11/11/2021, 04/0 01/2021, 09/18/2019, Additional history exists DTap/Tdap Vaccines (2 - Td or Tdap) 02/16/2024 02/15/2014 Influenza Vaccine (FLU shot) (#1) 2024 Albumin/Creatinine Ratio 05/13/2024 023, 04/28/2022, 08/04/2021, Additional history exists Diabetic Foot Exam 05/18/2024 05/18/2023, 1 , 04/23/2021, Additional history exists COVID-19 Vaccine ( season) 2024 07/14/2021, 11/20/2020, 10/23/2020 Postponed from 04/01/2024 (Unavailable) Depression Screening 11/27/2024 11/28/2023 TSH 12/06/2024 12/07/2023, [...] goal of less than 7.0% (HCC)- Primary Hyperlipidemia with target LDL less than 70 Other and unspecified hyperlipidemia Acquired hypothyroidism Unspecified hypothyroidism Essential hypertension with goal blood pressure less than 130/80 Statin-induced myositis Mylagia and myositis, unspecified Statins contraindicated GIL (nonalcoholic steatohepatitis) Other chronic nonalcoholic liver disease Vitamin B12 deficiency Other B-complex deficiencies Special screening for malignant neoplasms, colon documented in this encounter Care Teams Grinder Operator Relationship Specialty Start Date End Date Ronny Butts MD [address] [place] [id number] PCP - General Internal Medicine 01/18/13 documented as of this encounter"
--- OUTSIDE RECORDS SUMMARY | 2024-07-30 21:35 | External Medical Summary | Summary of Care ---
Author Name Unknown Organization [facility] Address [address] [place] [address] Phone [phone] Care Team Providers Care Director Script Name Role Phone Ronny Butts MD Primary Care Provider + Reason for Visit * Reason Comments Dosage Adjustment In Person (Anticoag Cl inic) Diabetes Follow-Up Encounter Details Date Type Department Care Team (Late st Contact Info) Description 07/20/2024 7:00 AM EST Telemedicine Pharmacy [address] [address] Pharmacist2, [address] [address] Type 2 diabetes mellitus with hemoglobin A1c goal of less than 7.0% ([facility])* Allergies Active Allergy Reactions Criticality Noted Date [...] hemoglobin A1c goal of less than 7.0% ([facility]) Use to check sugars fasting in am, 2 hours after lunch and in evening E11.9 100 Strip 11 4 Active OneTouch UltraSoft LancetsIndicatio ns:Type 2 diabetes mellitus with hemoglobin A1c goal of less than 7.0% ([facility]) Use to check sugars fasting in am, [...] Date Resolved Date History of 2019 novel bushc virus disease (COVID-19) 10/20/2020 11/28/2023 Fatty liver [...] No 12/28/2023 Does the household have a [facility] source of income? 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 - 07/20/2024 7:01 AM EST Patient location: HOME. I was in a hospital or clinic location. After connecting through [employer],patient was verified with two unique identifiers. Patient (or authorized legal sales representative malt liquors) was then informed that this was a Telemedicine visit and being conducted confidentially over secure lines. Methods to assure confidentiality were taken. Patient acknowledged consent and understanding of pr ivacy and security of the Telemedicine visit. The [...] MEDICATION CHANGES: yes, see below; preferred pharmacy: [facility] Diabetic Medications: Decrease: Glipizide 2.5mg - 1 [...] services. Maribel Gomez RPh Clinical Pharmacist - [employer] [facility] 07/20/2024, 7:01 AM documented in this encounter Miscellaneous Notes * Addendum Note - Maribel Gomez RPh - 07/20/2024 9:08 AM ESTAddended by: MARIBEL GOMEZ on: 07/20/2024 09:08 AM Modules accepted: Level of Service documented in this encounter Plan of Treatment Upcoming Encounters Date Type Department Care Team (Late st Contact Info) Description 08/07/2024 4:15 PM EST Imaging Radiology [facility] 1st [facility] 132 [facility] [place] [address] 08/08/2024 2:15 PM EST Cardiac Studies Cardiac Studies, [facility] 132 [facility] [place] [address] 08/21/2024 8:00 AM EST Office Visit Neurology [facility] [address] [place] [address] Man Ramos, DO [address] [place] [address] 09/13/2024 7:15 AM EST [facility] [address] [place] [phone] Ignacio, Pharmacist Neurology [address] [place] [phone] 09/20/2024 7:30 AM EST Telemedicine Pharmacy [address] [address] Pharmacist2, [address] [phone] 09/25/2024 8:00 AM EST Telemedicine Cardiology [facility] [address] [place], [place] [phone] [facility], Pharmacist Cardiology [address] [address] 10/11/2024 8:00 AM EDT Office Visit Cardiology, [facility] 132 [facility] [place] [address] Sara Lunsford PA-C 132 [facility] [place] [address] 01/10/2025 4:00 PM EDT Office Visit General Internal Medicine [facility] [address] [facility] [place] [address] Michelle Murillo PA-C [facility] [place] [address] 03/07/2025 8:15 AM EDT Imaging Radiology [facility] 132 [facility] [place] [address] 04/18/2025 2:00 PM EDT Office Visit General Internal Medicine [facility] [place] [address] Ronny Butts MD 200 [facility] [place] [address] Health Maintenance Due Date Last Done Comments [...] Primary documented in this encounter Care Teams Director Script Relationship Specialty Start Date End Date Ronny Butts MD [address] [place] [address] PCP - General Internal Medicine 01/18/13 documented as of this encounter
[2024-07-30] MEDS ORDERED: PROMETHAZINE 6.25 MG/50.25 ML BAG IV PRN (22:27)
[2024-07-30] MEDS ORDERED: oxyCODONE HCL IR 5 MG TAB (IMMEDIATE RELEASE) PO PRN (22:27)
[2024-07-30] MEDS ORDERED: LORazepam 0.5 MG TAB PO PRN (22:27)
[2024-07-30] MEDS: OPTIRAY 320 100ml IV ONE (22:56)
[2024-07-30] MEDS: predniSONE 20 MG TAB PO STA (23:01)
[2024-07-30] MEDS: 4.5GM X1 IV STA (23:11)
[2024-07-30] MEDS: ACETAMINOPHEN 500 MG TAB ONE (23:13)
[2024-07-30] MEDS: ACETAMINOPHEN 500 MG TAB PO PRN (23:13)
[2024-07-30] MEDS: SODIUM CHLORIDE 0.9% 1,000 ML IV ONE (23:14)
[2024-07-30] MEDS ORDERED: DEXTROSE 50% 50 ML SYRINGE IV PRN (23:56)
[2024-07-30] MEDS ORDERED: GLUCOSE 40% GEL 15 GM TUBE PO PRN (23:56)
[2024-07-30] MEDS ORDERED: GLUCAGON FOR INJ 1 MG VIAL SQ PRN (23:56)
[2024-07-30] MEDS ORDERED: GLUCOSE 10 TAB/TUBE PO PRN (23:56)
[2024-07-30] MEDS ORDERED: CARBOHYDRATES FOR HYPOGLYCEMIA PO PRN (23:56)
--- OUTSIDE RECORDS SUMMARY | 2024-07-31 00:06 | External Medical Summary | Summary of Care ---
Author Name Unknown Organization [facility] Address [address] [place] [address] Phone [phone] Care Team Providers Care Rebar Fabricator Name Role Phone Ronny Butts MD Primary Care Provider + Reason for Visit * Reason Comments Other Laceration to right index finger about 1 week ago with drainage starting about 4 days ago white to brown drainage Encounter Details Date Type Department Care Team (Latest Contact Info) Description 07/30/2024 2:15 PM EST [facility] [address] [place] [address] Zuleyma Sprague CRNP [address] [place] [id number] Infection of skin of finger* Allergies Active Allergy Reactions Criticality Noted Date Comments Influenza Virus Vaccine Nausea/vomiting 018 Statins Muscle pain High 12/22/2023 +ab documented as of this encounter (statuses as of 07/30/2024) Medications Cholecalciferol (VITAMIN D) 2000 units TabletIndications :Vitamin D deficiency Take 2,000 Units by mouth at bedtime. 7 Active Cyanocobalamin (B-12) 1000 MCG TABS Take 1 Tab by mouth daily. 30 Tab 8 Active OneTouch Verio w/Device KitIndications:Ty pe 2 diabetes mellitus with hemoglobin A1c goal of less than 7.0% ([facility]) Use to check sugars fasting in am, 2 hours after lunch and in evening 1 Kit 4 Active OneTouch Verio In Vitro Strip (Glucose Blood)Indications :Type 2 diabetes mellitus with hemoglobin A1c goal of less than 7.0% ([facility]) Use to check sugars fasting in am, 2 hours after lunch and in evening E11.9 100 Strip 11 4 Active OneTouch UltraSoft LancetsIndication s:Type 2 diabetes mellitus with hemoglobin A1c goal of less than 7.0% ([facility]) Use to check sugars fasting in am, [...] 1 4 Active glipiZIDE 2.5 MG Oral TabletIndications :Type 2 diabetes mellitus with hemoglobin A1c goal of less than 7.0% ([facility]) Take 2.5 mg by mouth daily. With prednisone 30 Tablet 2 4 Active documented as of this encounter (statuses as of 07/30/2024) Active Problems Problem Noted Date Diagnosed Date [...] as of this encounter (statuses as of 07/30/2024) Resolved Problems Problem Noted Date Diagnosed Date [...] as of this encounter (statuses as of 07/30/2024) Immunizations Name Administration Dates Next Due COVID-19 [...] Passive Smoke Exposure: Past Smokeless Tobacco: Never Tobacco Cessation:Counseling Given: Not Answered Comments:Passive smoke through father Alcohol Use Standard Drinks/Week Comments No [...] Date Job End Date CM assisted for [employer] Not on file Not on file Not on file documented as of this encounter Last Filed Vital Signs Vital Sign Reading Time Taken Comments Blood Pressure 142/74 07/30/2024 2:11 PM EST Pulse 110 07/30/2024 2:11 PM EST Temperature 36.2 C (97.2 F) 07/30/2024 2:11 PM ES T Respiratory Rate 20 07/30/2024 2:11 PM EST Oxygen Saturation 97% 07/30/2024 2:11 PM EST Inhaled Oxygen Concentration - - Weight 100.2 kg (221 lb) 07/30/2024 2:11 PM EST Height 166.4 cm (5' 5.5") 07/30/2024 2:11 PM EST Body Mass Index 36.22 07/30/2024 2:11 PM EST documented in this encounter Progress Notes * Zuleyma Sprague CRNP - 07/30/2024 2:20 PM EST Images from the original note were not included. [facility] Basic Exam Subjective Marcela Richards is a 69 year old female that presents to the [facility] with a right index finger laceration and infection. She obtained the initial cut about a week ago and 4d agoit began to have a thick discharge. Finger is swollen and redness is streaking up wrist and forearm. The redness did initially travel to just above the wrist this morning but has since traveled up most of her forearm along the ulnar side. Denies significant pain. + hx DMII + hx delayed wound healing Objective BP 142/74 | Pulse 110 | Temp 36.2 C (97.2 F) (Tympanic) | Resp 20 | Ht 1.664 m (5' 5.5") | Wt 100.2 kg (221 lb) | SpO2 97% | BMI 36.22 kg/m | BSA 2.15 m Body mass index is 36.22 kg/m. Review of Systems Constitutional: Negative. HENT: Negative. Respiratory: Negative. Cardiovascular: Negative. Gastrointestinal: Negative. Genitourinary: Negative. Musculoskeletal: Negative. Skin: Positive for color change and wound. Neurological: Negative. Physical Exam Vitals and nursing note reviewed. HENT: Head: Normocephalic. Eyes: Pupils: Pupils are equal, round, and reactive to light. Cardiovascular: Rate and Rhythm: Normal rate. Pulmonary: Effort: Pulmonary effort is normal. Musculoskeletal: Comments: Able to move R index finger but ROM is limited by edema Skin: General: Skin is warm and dry. Capillary Refill: Capillary refill takes less than 2 seconds. Findings: Erythema and lesion present. Comments: Initial cut was small on the inside edge of the index finger. Since becoming red/swollen the cut has now split across the knuckle. Purulent matter can be expressed without difficulty. Cap refill normal for now. Redness does [place]. Red streak goes up most of the way to the elbow, discovered after taking photo in chart that it actually extends up another 1.5 inches. Note that while entering the description for the photo it incorrectly states "1st finger" when it is actually her index finger. Neurological: Mental Status: She is alert and oriented to person, place, and time. Media Information Document Information Photographic Image: Clinical Photo Right 1st [correction: 2nd/index] finger infection 07/3007/30/2024 14:28 Attached To: [facility] Visit on 07/30/24 with Zuleyma Sprague CRNP Source Information Zuleyma Sprague CRNP | [facility] [place] Document History Media Information Document Information Photographic Image: Clinical Photo Right index finger infection 07/30/2024 07/30/2024 14:30 Attached To: [facility] Visit on 07/30/24 with Zuleyma Sprague CRNP Source Information Zuleyma Sprague CRNP | [facility] [place] Document History Past Medical History: Diagnosis Date Epistaxis, recurrent 05/06/2016 Fatty liver 04/22/2020 Generalized osteoarthritis 05/06/2014 History of 2019 novel coronavirus disease (COVID-19) Hyperlipidemia with target LDL less than 130 01/18/2013 Hypothyroidism 01/18/2013 GIL (nonalcoholic steatohepatitis) 11/02/2022 Osteoarthritis of hand 05/06/2014 Type 2 diabetes mellitus with hemoglobin A1c goal of less than 7.0% (HCC) 03/22/2017 Patient Active Problem List Diagnosis Type 2 diabetes mellitus with hemoglobin A1c goal of less than 7.0% ([facility]) Vitamin B12 deficiency Hyperlipidemia with target LDL less than 70 Essential hypertension with goal blood pressure less than 130/80 Acquired hypothyroidism Stress incontinence GIL (nonalcoholic steatohepatitis) DDD (degenerative disc disease), lumbar PVC (premature ventricular contraction) Statins contraindicated Statin-induced myositis BP Readings from Last 3 Encounters: 07/30/24 142/74 07/12/24 114/80 06/05/24 116/76 Wt Readings from Last 3 Encounters: 07/30/24 100.2 kg (221 lb) 07/12/24 97.5 kg (215 lb) 06/05/24 95.1 kg (209 lb 11.2 oz) Assessment and plan Infection of skin of finger (Primary) At time of eval advised to Marcela that she would be best benefited by going to the local ER where she could receive IV abx if found necessary as well as potentially obtain imaging of the finger to rule out osteomyelitis. The infection seems to be rapidly worsening based upon her history and at this time it seems likelythat she may require more than a single IM rocephin dose followed by oral abx which is what we haveavailable at this level of care.. A temporary dressing of bacitracin and gauze w/ cling wrap was placed to protect the open area while she drives to [facility] ER for eval. The ER was notified via telephone that she would be coming over. Follow up To [facility] ER for eval Total time today including reviewing chart before the visit, pertinent labs, imaging reports, face to face time, and documentation time was 20 minutes. The above was discussed and understanding was expressed. ZITA Lagos documented in this encounter Nursing Notes * Fatou Muñoz LPN - 07/30/2024 2:17 PM EST Marcela Richards is a 69 year old female who presents to walk-in clinic today complaining of Chief Complaint Patient presents with Other Laceration to right index finger about 1 week ago with drainage starting about 4 days ago white to brown drainage OTC treatments tried:bandaid Patient is accompanied by no one for today's visit. documented in this encounter Plan of Treatment Upcoming Encounters Date Type Department Care Team (Late st Contact Info) Description 08/07/2024 4:15 PM EST Imaging Radiology [facility] [address] [facility] [address] [place] [address] 08/08/2024 2:15 PM EST Cardiac Studies Cardiac Studies, [address] [address] 08/21/2024 8:00 AM EST Office Visit Neurology [facility] [address] [place] [address] Man Ramos, DO [address] [place] [address] 09/13/2024 7:15 AM EST Pharmacy Neurology [address] [place] [phone] Ignacio, Pharmacist Neurology [address] [facility] [place] [id number] 09/20/2024 7:30 AM EST Telemedicine Pharmacy [facility] Ignacio Cabrera [address] [facility] [place] [id number] Pharmacist2, [address] [place] [id number] 09/25/2024 8:00 AM EST Telemedicine Cardiology [facility] [place] [address] [place] [address] [place] [address], Pharmacist Cardiology [facility] [address] [place] [address] 10/11/2024 8:00 AM EDT Office Visit Cardiology, [facility] [address] [facility] [place] [address] Sara Lunsford PA-C [address] [facility] [place] [address] 01/10/2025 4:00 PM EDT Office Visit General Internal Medicine [facility] [address] [facility] [place] [address] Michelle Murillo PAJocelyn [address] [facility] [place] [address] 03/07/2025 8:15 AM EDT Imaging Radiology [facility] [address] [facility] [place] [address] 04/18/2025 2:00 PM EDT Office Visit General Internal Medicine [facility] [address] [facility] [place] [address] Ronny Butts MD [address] [facility] [place] [address] Health Maintenance Due Date Last Done Comments DXA Scan 1955 Pneumococcal Vaccine: 50+ Years (1 of 2 - PCV) 1974 [...] as of this encounter Visit Diagnoses Diagnosis Infection of skin of finger- Primary documented in this encounter Care Teams Rebar Fabricator Relationship Specialty Start Date End Date Ronny Butts MD [address] [facility] [place] [address] PCP - General Internal Medicine 01/18/13 documented as of this encounter
[2024-07-31] MEDS: INSULIN ASPART PER UNIT CHARGE SC SCH (00:40)
--- NOTE | 2024-07-31 00:49 | CT Scan Report ---
Exam(s): CT EXTREMITY RIGHT UPPER With Contrast IV Amt: 93 ml optiray 320 EXAM: CT Right Upper Extremity With Intravenous Contrast CLINICAL HISTORY: swelling. TECHNIQUE: Axial computed tomography images of the right upper extremity with intravenous contrast. CTDI is 19.67 mGy and DLP is 430.7 mGy-cm. Automated exposure control was utilized for the study. A dose lowering technique was utilized adhering to the principles of ALARA. CONTRAST: Patient received 93 ml optiray 320 of IV contrast COMPARISON: X-ray right hand 07/30/2024 FINDINGS: Bones/joints: Bones are diffusely osteopenic. No bone erosions or periosteal reaction. Distal tip of the distal phalanx of the second digit appears intact. No acute fracture. No dislocation. Soft tissues: Soft tissue swelling and irregularity at the dorsal aspect of the distal aspect of the second digit with mild enhancement. No discrete abscess. No radiopaque foreign body. No interstitial gas. IMPRESSION: Soft tissue swelling, irregularity and enhancement of the dorsal aspect of the distal second digit without an underlying osseous abnormality or radiopaque foreign body. Consistent with a cellulitis. Electronically signed by: Boaz Moya M.D. 07/31/24 00:48 AM
--- NOTE | 2024-07-31 01:51 | Emergency Department Note ---
Impression & Plan Cellulitis of finger of right hand, Laceration of right index finger ED Provider Note CHIEF COMPLAINT: Right hand infection HISTORY OF PRESENT ILLNESS: This 69-year-old female patient past medical history of diabetes, hypertension, hypothyroidism and myositis presents to the emergency department with complaints of right index finger infection. The patient states several days ago she was in the kitchen and cut her distal index finger on a food processing blade. She washed the wound out and bandaged it up. She did not seek medical attention at that time. Patient noticed over the last 24 hours that the finger was becoming red and painful. She went to the urgent care today and was sent to the emergency department because the infection was streaking up the arm. Patient denies any fevers. She states her tetanus status is out of date. REVIEW OF SYSTEMS: A review of systems was performed with positives and pertinent negatives listed in the history of present illness. 10 systems were reviewed and are otherwise negative. ALLERGIES: see below MEDICATIONS: see below PMH: see below SOCIAL HISTORY: see below DDx: Cellulitis, abscess, DVT, fracture among others. PHYSICAL EXAM: Vital signs reviewed. Noted to be hypertensive General: Well-appearing 69-year-old female, in no significant distress. HEENT: No scleral icterus, PERRLA, neck supple. Moist mucous membranes Cardiovascular: Regular rate and rhythm, no extra sounds. Pulmonary: Clear to auscultation bilaterally, normal work of breathing. Abdomen: Soft, nontender, nondistended, positive bowel sounds. Musculoskeletal: Atraumatic, erythema noted to the right index finger with an open wound distally with minimal drainage. No obvious fluctuance. Lymphangitic streaking noted to the elbow. Neurologic: Patient awake alert and oriented x 3, speech is clear Skin: Warm, dry, no rash EMERGENCY DEPARTMENT COURSE/MDM: This patient was evaluated and appeared to be in no significant distress. IV access was obtained and laboratory work was drawn. Patient was placed on the monitoring engineer. She was medicated with IV Ancef, IV doxycycline. Fluids were initiated. X-ray of the right index finger were performed and reveals no acute fracture. Given the severity of the cellulitis and location of the laceration, patient's case was discussed with the hospitalist service to evaluate the patient for admission and further management. Patient was aware of the plan and agreed. MONITORING: An order for cardiac monitoring was placed and the patient is noted to be in a normal sinus rhythm at 100 beats per minute. RADIOLOGY: Right hand x-ray to my interpretation reveals no fracture or foreign body. Otherwise defer to radiology's over read DISPOSITION: Admission Past Med/Surg History Problem List (Updated 08/05/24 @ 11:51 by Carlita Martin MD) Septic arthritis of hand, right Laceration of right index finger (Acute) Cellulitis of finger of right hand (Acute) Medical History Extensor tendon laceration of hand with open wound HMG-CoA myositis Overactive bladder 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 per pt, no stroke hx > no cane or walker History of COVID-19 2020/2021 Diabetes mellitus, type 2 Hypothyroidism GERD (gastroesophageal reflux disease) Hyperlipidemia Hypertension Surgical History Hx of cataract extraction right History of esophagogastroduodenoscopy (EGD) History of colonoscopy History of section x3 Hx of gastric bypass History of tooth extraction History of tonsillectomy Family History Father Hypertension Social History Smoking Status: Never smoker Second Hand Exposure: No; Do You Dip or Chew Tobacco: No; Hx Alcohol Use: No Hx Substance Use: No Preferred Language: Slovak Communication Ability: Effective Bunch Breaker Required: No Beliefs That Will Affect Care: None Current Living Situation: Spouse Feels Safe at Home: Yes Assistive Devices: None Allergies Allergies Allergy/AdvReac Type Severity Reaction Status Date / Time Janjmil-TPC-GcD Reductase Allergy Intermediate Muscle Pain Verified 07/03/24 08:57 Inhibitor Influenza Virus Vaccines AdvReac Intermediate Gastrointestinal Verified 07/30/24 19:57 Upset Home Meds Home Medications Medication Instructions Recorded Confirmed ascorbic acid (vitamin C) 250 mg 250 mg PO QAM 06/12/24 07/30/24 tablet (Vitamin C) cholecalciferol (vitamin D3) 25 25 mcg PO DAILY 06/12/24 07/30/24 mcg (1,000 unit) chewable tablet (Vitamin D3) cyanocobalamin (vitamin B-12) 100 100 mcg PO DAILY 06/12/24 07/30/24 mcg tablet ezetimibe 10 mg tablet 10 mg PO PM 06/12/24 07/30/24 folic acid 1 mg tablet 1 mg PO QAM 06/12/24 07/30/24 inclisiran 284 mg/1.5 mL 1.5 mg subcut UD 06/12/24 07/30/24 subcutaneous syringe (Leqvio) levothyroxine 75 mcg tablet 75 mcg PO QAM 06/12/24 07/30/24 losartan 50 mg tablet 50 mg PO QAM 06/12/24 07/30/24 omeprazole 20 mg tablet,delayed 20 mg PO QAM 06/12/24 07/30/24 release glipizide 5 mg tablet 2.5 mg PO .DAILY W/ PREDNISONE 07/30/24 07/30/24 metformin 500 mg tablet,extended 1,000 mg PO QDD 07/30/24 07/30/24 release 24 hr methotrexate sodium 2.5 mg tablet 15 mg PO WK 07/30/24 07/30/24 oxybutynin chloride 5 mg 5 mg PO QAM 07/30/24 07/30/24 tablet,extended release 24 hr prednisone 20 mg tablet 20 mg PO QAM 07/30/24 07/30/24 Previous Rx's Medication Instructions Recorded cefadroxil 500 mg capsule 1,000 mg (2 x 500 mg) PO BID 14 08/02/24 days #56 caps Results & Data (ED) Vital Signs Vital Signs - 24 hr 07/30/24 15:08 07/30/24 20:17 Temperature 36.6 C Temperature Source Temporal Artery Scan Pulse Rate 99 H 101 H Respiratory Rate 18 Respiratory Effort / Characteristics Non-Labored Spontaneous Respiratory Depth Normal Blood Pressure 148/92 H Blood Pressure Mean 110 Blood Pressure Position Sitting Pulse Oximetry 97 Oxygen Delivery Method Room Air Sepsis Recent Fever Within 48 Hours No Sepsis New/Unexplained Change in Mental Status No Sepsis Action Taken by Nursing No Action Required Home Medications Current Medication List: was personally reviewed by me Laboratory Data Attestation: I reviewed the patient's lab results. 08/02/24 06:05 08/02/24 06:05 Lab Results 07/30/24 07/30/24 Range/Units 17:36 20:53 WBC 14.37 H (4.8-10.8) K/ul RBC 4.82 (4.20-5.40) M/uL Hgb 13.8 (12.0-16.0) g/dl Hct 43.1 (37.0-47.0) % MCV 89.4 (80.0-100.0) fL MCH 28.6 (25.0-34.0) pg MCHC 32.0 (32.0-36.0) g/dL RDW Std Deviation 52.2 H (36.4-46.3) fL RDW Coeff of [place] 16.1 H (11.5-14.5) % Plt Count 281 (130-400) K/uL MPV 9.5 (9.4-12.4) fL Immature Gran % (Auto) 0.6 % Neut % (Auto) 79.9 % Lymph % (Auto) 14.8 % [place] % (Auto) 3.9 % Eos % (Auto) 0.6 % Baso % (Auto) 0.2 % Neut # (Auto) 11.49 H (1.40-6.50) K/uL Lymph # (Auto) 2.13 (1.20-3.40) K/uL [place] # (Auto) 0.56 (0.11-0.59) K/uL Eos # (Auto) 0.08 (0.00-0.50) K/uL Baso # (Auto) 0.03 (0.00-0.20) K/uL Immature Gran # (Auto) 0.08 (0.01-0.20) K/uL Sodium 141 (136-145) mmol/L Potassium 4.1 (3.5-5.1) mmol/L Chloride 107 (98-107) mmol/L Carbon Dioxide 25 (21-32) mmol/L Anion Gap 9 (3-11) BUN 18 (6-23) mg/dl Creatinine 0.62 (0.6-1.2) mg/dl Est Cr Clr Drug Dosing 99.8 ml/min eGFR 96.34 BUN/Creatinine Ratio 29.0 H (10-20) Glucose 157 H (70-99(Fasting)) mg/dl Lactate 1.7 (0.4-2.0) mmol/L Calcium 9.8 (8.6-10.3) mg/dl Magnesium 1.7 (1.7-2.4) mg/dl Total Bilirubin 0.5 (0.2-1.0) mg/dl AST 15 (13-39) U/L ALT 25 (7-52) U/L Alkaline Phosphatase 68 (34-104) U/L Total Protein 7.3 (6.0-8.3) gm/dl Albumin 4.1 (3.4-5.0) gm/dl Globulin 3.2 (2.5-4.0) gm/dl Albumin/Globulin Ratio 1.3 (0.9-2) Administered Medications Discontinued Medications Acetaminophen (Acetaminophen 500 Mg Tab) 500 mg PO Q6H PRN PRN Reason: fever/pain Stop: 08/29/24 22:26 Last Admin: 08/01/24 16:19 Dose: 500 mg Documented By: Admin: 07/30/24 23:13 Dose: 500 mg Documented By: GIRMA Acetaminophen (Acetaminophen 500 Mg Tab) Confirm Administered Dose 500 mg .ROUTE .STK-MED ONE Stop: 07/30/24 23:11 Last Admin: 07/31/24 00:26 Dose: Not Given Documented By: GIRMA Bupivacaine HCl (Bupivacaine 0.5 % 5 Mg/1 Ml Mpf 30ml Vial) Confirm Administered Dose 30 ml .ROUTE .STK-MED ONE Stop: 07/31/24 13:23 Last Admin: 07/31/24 14:50 Dose: Not Given Documented By: GLENN Bupivacaine HCl/Epinephrine Bitart (Bupivacaine/Epinephrine 0.5% Mpf 1:200,000 30 Ml Vial) Confirm Administered Dose 30 ml .ROUTE .STK-MED ONE Stop: 07/31/24 13:23 Last Admin: 07/31/24 14:51 Dose: Not Given Documented By: GLENN Cyanocobalamin (Cyanocobalamin (B-12) 100 Mcg Tablet) 100 mcg PO DAILY [facility] Stop: 08/30/24 08:59 Last Admin: 08/02/24 07:54 Dose: 100 mcg Documented By: Admin: 08/01/24 08:23 Dose: 100 mcg Documented By: Admin: 07/31/24 08:42 Dose: 100 mcg Documented By: TOMAS Doxycycline Hyclate (Doxycycline Hyclate 100 Mg Cap) 100 mg PO BID MARJ Stop: 08/07/24 08:59 Last Admin: 08/01/24 08:23 Dose: 100 mg Documented By: Admin: 07/31/24 20:04 Dose: 100 mg Documented By: Admin: 07/31/24 08:42 Dose: 100 mg Documented By: TOMAS Ezetimibe (Ezetimibe 10 Mg Tab) 10 mg PO PM MARJ Stop: 08/30/24 20:59 Last Admin: 08/01/24 20:30 Dose: 10 mg Documented By: Admin: 07/31/24 20:04 Dose: 10 mg Documented By: IDRIS Folic Acid (Folic Acid 1 Mg Tab) 1 mg PO QAM MARJ Stop: 08/30/24 08:59 Last Admin: 08/02/24 07:53 Dose: 1 mg Documented By: Admin: 08/01/24 08:23 Dose: 1 mg Documented By: Admin: 07/31/24 08:43 Dose: 1 mg Documented By: TOMAS Cefazolin Sodium (Ancef 2000mg) 2,000 mg in 15 mls @ 3.75 mls/min IV NOW STA Stop: 07/30/24 19:15 Last Admin: 07/30/24 19:53 Dose: 3.75 mls/min Documented By: SHIRA Doxycycline Hyclate 100 mg/ (Dextrose) 100 mls @ 50 mls/hr IV NOW STA Stop: 07/30/24 21:11 Last Infusion: 07/31/24 00:22 Dose: Infused Documented By: Admin: 07/30/24 21:00 Dose: 50 mls/hr Documented By: SB Piperacillin Sod/Tazobactam Sod (Zosyn) 4.5 gm in 100 mls @ 25 mls/hr IV Q8H MARJ; Protocol Stop: 08/07/24 03:59 Last Admin: 08/02/24 12:28 Dose: Not Given Documented By: Infusion: 08/02/24 10:05 Dose: Infused Documented By: Admin: 08/02/24 05:03 Dose: 25 mls/hr Documented By: Infusion: 08/02/24 00:32 Dose: Infused Documented By: Admin: 08/01/24 20:30 Dose: 25 mls/hr Documented By: Infusion: 08/01/24 17:04 Dose: Infused Documented By: Admin: 08/01/24 13:25 Dose: 25 mls/hr Documented By: Infusion: 08/01/24 07:22 Dose: Infused Documented By: Admin: 08/01/24 03:22 Dose: 25 mls/hr Documented By: Infusion: 08/01/24 00:02 Dose: Infused Documented By: Admin: 07/31/24 19:57 Dose: 25 mls/hr Documented By: Infusion: 07/31/24 17:00 Dose: Infused Documented By: Admin: 07/31/24 12:13 Dose: 25 mls/hr Documented By: Infusion: 07/31/24 07:13 Dose: Infused Documented By: Admin: 07/31/24 03:13 Dose: 25 mls/hr Documented By: GIRMA Piperacillin Sod/Tazobactam Sod (Zosyn) 4.5 gm in 100 mls @ 200 mls/hr IV NOW STA; Protocol Stop: 07/30/24 21:52 Last Infusion: 07/30/24 23:56 Dose: Infused Documented By: Admin: 07/30/24 23:11 Dose: 200 mls/hr Documented By: GIRMA Sodium Chloride (Nss) 1,000 mls @ 75 mls/hr IV .[id number] ONE Stop: 07/31/24 11:36 Last Infusion: 07/31/24 06:38 Dose: Infused Documented By: Admin: 07/30/24 23:14 Dose: 75 mls/hr Documented By: GIRMA Cefazolin Sodium (Ancef 2000mg) 2,000 mg in 15 mls @ 3.75 mls/min IV ONCE ONE; Protocol Stop: 07/31/24 15:18 Last Admin: 07/31/24 14:37 Dose: 3.75 mls/min Documented By: UZAIR Daptomycin 600 mg/ Syringe 12 mls @ 6 mls/min IV Q24H MARJ; Protocol Stop: 08/08/24 10:59 Last Admin: 08/02/24 12:28 Dose: Not Given Documented By: Admin: 08/01/24 15:33 Dose: 6 mls/min Documented By: CALEB Cefazolin Sodium (Ancef 2000mg) 2,000 mg in 15 mls @ 3.75 mls/min IV Q8H MARJ Stop: 09/13/24 12:59 Last Admin: 08/02/24 14:22 Dose: 3.75 mls/min Documented By: BOUBACAR Insulin Aspart (Insulin Aspart Per Unit Charge) 0 units SC ACHS MARJ Stop: 08/29/24 23:55 Last Admin: 08/02/24 13:02 Dose: 4 units Documented By: BOUBACAR Co-signed By: CMV Admin: 08/02/24 08:22 Dose: 6 units Documented By: BOUBACAR Co-signed By: NELIDA Admin: 08/01/24 20:30 Dose: Not Given Documented By: Admin: 08/01/24 17:05 Dose: 6 units Documented By: CALEB Co-signed By: BECKI Admin: 08/01/24 12:28 Dose: 4 units Documented By: CALEB Co-signed By: NELIDA Admin: 08/01/24 08:28 Dose: 7 units Documented By: CALEB Co-signed By: BECKI Admin: 07/31/24 22:28 Dose: 4 units Documented By: IDRIS Co-signed By: RAFA Admin: 07/31/24 18:13 Dose: 2 units Documented By: CALEB Co-signed By: DARIA Admin: 07/31/24 11:19 Dose: Not Given Documented By: Admin: 07/31/24 07:23 Dose: 4 units Documented By: TOMAS Co-signed By: JHONATAN Admin: 07/31/24 00:40 Dose: 5 units Documented By: GIRMA Co-signed By: GELACIO Insulin Glargine (Lantus Per Unit Charge) 5 units SQ DAILY [facility] Stop: 08/31/24 08:59 Last Admin: 08/02/24 08:22 Dose: 5 units Documented By: BOUBACAR Co-signed By: NELIDA Admin: 08/01/24 08:28 Dose: 5 units Documented By: CALEB Co-signed By: BECKI Ioversol (Optiray 320 100ml) 100 ml IV ONCE ONE Stop: 07/30/24 22:56 Last Admin: 07/30/24 22:56 Dose: 93 ml Documented By: JOSSIE Ketorolac Tromethamine (Ketorolac Tromethamine 15 Mg/Ml Vial) 15 mg IV Q6H PRN PRN Reason: Pain Stop: 08/04/24 22:26 Last Admin: 07/31/24 18:17 Dose: 15 mg Documented By: CALEB Lactobacillus Acidophilus (Advanced Probiotic 625 Mg Capsule) 1,250 mg PO DAILY MARJ Stop: 09/01/24 12:29 Last Admin: 08/02/24 12:53 Dose: 1,250 mg Documented By: BOUBACAR Levothyroxine Sodium (Levothyroxine Sodium 75 [facility]g Tablet) [facility] Stop: 08/30/24 06:29 Last Admin: 08/02/24 06:01 Dose: 75 mcg Documented By: Admin: 08/01/24 05:42 Dose: 75 mcg Documented By: Admin: 07/31/24 07:04 Dose: 75 mcg Documented By: TOMAS Losartan Potassium (Losartan Potassium 50 Mg Tab) [facility]: 08/30/24 08:59 Last Admin: 08/02/24 07:53 Dose: 50 mg Documented By: Admin: 08/01/24 08:23 Dose: 50 mg Documented By: Admin: 07/31/24 08:43 Dose: 50 mg Documented By: TOMAS Menthol (Cough Drop (Sugar Free) Joe 24 Joe/1 Box) Confirm Administered Dose 24 joe BUCCAL .STK-MED [facility] Stop: 07/31/24 18:17 Last Admin: 07/31/24 18:20 Dose: 24 joe Documented By: CALEB Oxybutynin Chloride (Oxybutynin Chloride Xl 5 Mg Tabcr) [facility]: 08/30/24 08:59 Last Admin: 08/02/24 07:54 Dose: 5 mg Documented By: Admin: 08/01/24 08:23 Dose: 5 mg Documented By: Admin: 07/31/24 08:43 Dose: 5 mg Documented By: TOMAS Pantoprazole Sodium (Pantoprazole 40 Mg Tab) 40 mg PO [facility] Stop: 08/30/24 08:59 Last Admin: 08/02/24 07:53 Dose: 40 mg Documented By: Admin: 08/01/24 08:23 Dose: 40 mg Documented By: Admin: 07/31/24 08:43 Dose: 40 mg Documented By: TOMAS Prednisone (Prednisone 20 Mg Tab) 20 mg PO [facility] Stop: 08/30/24 20:59 Last Admin: 08/01/24 20:30 Dose: 20 mg Documented By: Admin: 07/31/24 20:04 Dose: 20 mg Documented By: IDRIS Prednisone (Prednisone 20 Mg Tab) 20 mg PO NOW [facility] Stop: 07/30/24 22:28 Last Admin: 07/30/24 23:01 Dose: 20 mg Documented By: GIRMA Tetanus/Diphtheria Toxoids Adsorbed (Diphtheria/Tetanus Tox Adsorb Vaccine (Td) 0.5 Ml Syr/Vial) 0.5 ml IM .ONCE ONE Stop: 07/30/24 19:13 Last Admin: 07/30/24 21:01 Dose: 0.5 ml Documented By: SB Vancomycin HCl (Vancomycin Hcl 1000mg/20ml Vial) Confirm Administered Dose 100 mg .ROUTE .STK-MED ONE Stop: 07/31/24 14:46 Last Admin: 07/31/24 14:51 Dose: 100 mg Documented By: [id number] Vitamin D (Cholecalciferol 25 Mcg (1000 Units) Tab) 25 mcg PO DAILY MARJ Stop: 08/30/24 08:59 Last Admin: 08/02/24 07:54 Dose: 25 mcg Documented By: Admin: 08/01/24 08:23 Dose: 25 mcg Documented By: Admin: 07/31/24 08:42 Dose: 25 mcg Documented By: TOMAS Imaging Data Radiologist's Impression: Hand X-Ray 07/30/24 18:05 Exam(s): XR RIGHT HAND, 2 views EXAM: XR Right Hand, 2 Views CLINICAL HISTORY: Reason for exam: R index finger injury. TECHNIQUE: Frontal and lateral views of the right hand. COMPARISON: No relevant prior studies available. FINDINGS: Bones/joints: No fracture or malalignment. Degenerative changes at the first CMC joint. Soft tissues: Soft tissue wound to the tip of the second finger. No radiopaque foreign body. IMPRESSION: 1. Soft tissue wound to the tip of the second finger. No radiopaque foreign body. 2. No fracture or malalignment. Electronically signed by: Liborio Mcpherson MD 07/30/24 19:44 PM Discharge Plan Visit Data Chief Complaint: Infection, Wound Stated Complaint: LAC ON RT INDEX ED Provider: Carlita Martin Discharge Problem: Cellulitis of finger of right hand, Laceration of right index finger Patient Disposition: Admitted As Inpatient Discharge Instructions Interventions: ED Discharge Assessment Last Done: 07/31/24 13:04 Discharge Problem: Laceration of right index finger Qualifiers: Encounter type: initial encounter Damage to nail status: without damage Foreign body presence: without foreign body Qualified Code(s): S61.210A - Laceration without foreign body of right index finger without damage to nail, initial encounter
[2024-07-31] MEDS: PIPERACILLIN/TAZOBACTAM 4.5 GM/100 ML BAG IV SCH (03:13)
[2024-07-31 05:20] LABS: Basophils # (auto) 0.02 K/uL (0.00-0.20); Basophils % (auto) 0.2 %; Eosinophils # (auto) 0.01 K/uL (0.00-0.50); Eosinophils % (auto) 0.1 %; Hemoglobin 12.1 g/dl (12.0-16.0); Immature Granulocytes # (auto) 0.09 K/uL (0.01-0.20); Immature Granulocytes % (auto) 0.8 %; Lymphocytes # (auto) 0.83 K/uL (1.20-3.40); Lymphocytes % (auto) 7.4 %; Mean Corpuscular Hemoglobin 28.7 pg (25.0-34.0); Mean Corpuscular Hgb Conc 31.8 g/dL (32.0-36.0); Mean Platelet Volume 9.7 fL (9.4-12.4); Monocytes # (auto) 0.28 K/uL (0.11-0.59); Monocytes % (auto) 2.5 %; Neutrophils # (auto) 10.03 K/uL (1.40-6.50); Platelet Count 248 K/uL (130-400); RDW Standard Deviation 52.1 fL (36.4-46.3); Red Blood Count 4.22 M/uL (4.20-5.40); White Blood Count 11.26 K/ul (4.8-10.8)
[2024-07-31 05:36] LABS: BUN Creatinine Ratio 22.4 (10-20); Calcium 8.8 mg/dl (8.6-10.3); Creatinine Clr Calc Pharmacy 106.7 ml/min; Potassium 4.3 mmol/L (3.5-5.1)
[2024-07-31] MEDS: LEVOTHYROXINE SODIUM 75 MCG TABLET PO SCH (07:04)
--- NOTE | 2024-07-31 07:16 | Orthopedic Consultation ---
Date of Consultation July 31, 2024 Assessment & Plan (1) Laceration of right index finger: (2) Cellulitis of finger of right hand: Plan This is a pleasant 69-year-old female who presents to the emergency department 10 days after sustaining a laceration to the right dorsal index finger over the DIP joint. The patient has been doing home wound care and she has developed a significant soft tissue infection since that time. She presented to the ER last night and was noted to have red streaking on her arm, and a swollen and erythematous digit. On my evaluation this morning, the patient's exam was not concerning for flexor tenosynovitis. She has no tenderness to palpation over her flexor tendon sheath. She has mild flexed posturing of the digit, but she has painless range of motion of the digit both in flexion and extension. She does have mild fusiform swelling of the digit. She does demonstrate active flexion and extension of the PIP joint and active flexion of the DIP joint with some very weak extension of the DIP joint. My primary concern at this point is that she has either inadvertently seeded her DIP joint and caused a septic arthritis in her DIP joints or potentially has an abscess that is small and unable to be fully appreciated on the CT scan. Considering she has had this wound for 10 days, it has not healed, and it is continuing to drain, I do think that operative irrigation and debridement with evaluation of the extensor tendon would be reasonable. I explained to the patient that if the extensor tendon is lacerated, it may be inadvisable to repair it acutely in the presence of an infection, so if that were to be the case, I would refer her to my hand surgery colleagues for definitive management of her extensor tendon rupture. I explained to her the risks of the surgery in great detail. We discussed the risks include but are not limited to loss of life/limb, DVT, incomplete relief of pain, incomplete eradication of infection, need for additional surgery, digit deformity, iatrogenic injury to bone/nerve/tendon/vessel/cartilage, degenerative osteoarthrosis of the DIP joint. I explained the benefits of surgery include source control of the infection. Alternatives to surgery would be IV antibiotics and continued observation. Through shared decision making model, the patient has elected to proceed with operative management. She has been n.p.o. since midnight. We have called the operating room and will take her upon OR availability which will likely be this afternoon. Would recommend infectious disease consultation, continued IV antibiotics. I have also ordered an ESR and CRP to be completed now. History of Present Illness Reason for Consultation: right index finger infection Attending Physician: Rocio Gil MD History of Present Illness This is a 69 year old female who presented to the emergency department last evening for evaluation of her right index finger. Patient notes that she was cooking on 07/23 when she sustained a cut to her index finger. She states that she washed the wound and bandaged it. She observed over the course of the next week or so and started noticing increasing swelling and redness on Tuesday while up last week. She dealt with it over the weekend went to the urgent care yesterday and was sent to the emergency department. She has not been on oral antibiotics. Patient notes that after the cut she was able to move her finger fine and does not believe that she had any issues with extending her digit. She notes that he did notice redness extending up her arm over the weekend. She denies any fevers at home. In the emergency department, I did eventually start criteria with tachycardia and elevated white blood cell count. She has been receiving IV antibiotics with significant improvement since her original presentation. Allergies Allergy/AdvReac Type Severity Reaction Status Date / Time [id number] Reductase Allergy Intermediate Muscle Pain Verified 07/03/24 08:57 Inhibitor Influenza Virus Vaccines AdvReac Intermediate Gastrointestinal Verified 07/30/24 19:57 Upset Home Medications Medication Instructions Recorded Confirmed Type ascorbic acid (vitamin C) 250 mg 250 mg PO QAM 06/12/24 07/30/24 History tablet (Vitamin C) cholecalciferol (vitamin D3) 25 25 mcg PO DAILY 06/12/24 07/30/24 History mcg (1,000 unit) chewable tablet (Vitamin D3) cyanocobalamin (vitamin B-12) 100 100 mcg PO DAILY 06/12/24 07/30/24 History mcg tablet ezetimibe 10 mg tablet 10 mg PO PM 06/12/24 07/30/24 History folic acid 1 mg tablet 1 mg PO QAM 06/12/24 07/30/24 History inclisiran 284 mg/1.5 mL 1.5 mg subcut UD 06/12/24 07/30/24 History subcutaneous syringe (Leqvio) levothyroxine 75 mcg tablet 75 mcg PO QAM 06/12/24 07/30/24 History losartan 50 mg tablet 50 mg PO QAM 06/12/24 07/30/24 History omeprazole 20 mg tablet,delayed 20 mg PO QAM 06/12/24 07/30/24 History release glipizide 5 mg tablet 2.5 mg PO .DAILY W/ PREDNISONE 07/30/24 07/30/24 History metformin 500 mg tablet,extended 1,000 mg PO QDD 07/30/24 07/30/24 History release 24 hr methotrexate sodium 2.5 mg tablet 15 mg PO WK 07/30/24 07/30/24 History oxybutynin chloride 5 mg 5 mg PO QAM 07/30/24 07/30/24 History tablet,extended release 24 hr prednisone 20 mg tablet 20 mg PO QAM 07/30/24 07/30/24 History Patient History Medical History HMG-CoA myositis Overactive bladder 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 per pt, no stroke hx > no cane or walker History of COVID-19 2020/2021 Diabetes mellitus, type 2 Hypothyroidism GERD (gastroesophageal reflux disease) Hyperlipidemia Hypertension Surgical History Hx of cataract extraction right History of esophagogastroduodenoscopy (EGD) History of colonoscopy History of section x3 Hx of gastric bypass History of tooth extraction History of tonsillectomy Family History Father Hypertension Social History Smoking Status: Never smoker Second Hand Exposure: No; Do You Dip or Chew Tobacco: No; Hx Alcohol Use: No Hx Substance Use: No Preferred Language: Greenlandic Communication Ability: Effective Probate Judge Required: No Beliefs That Will Affect Care: None Current Living Situation: Spouse Feels Safe at Home: Yes Assistive Devices: None Review of Systems Review of Systems: All systems reviewed & are unremarkable except as noted in HPI & below Physical Exam Physical Exam: On physical examination, the patient has a laceration of the DIP joint of her right index that extends from medially across dorsally to the lateral side. The patient's digit is quite swollen and erythematous. There is mild drainage noted from the laceration that appears purulent. She has no tenderness to palpation over the flexor tendon sheath. She has mild flexed posturing of the digit. She has no pain with extension or any passive range of motion of the digit. She has no pain range of motion of the DIP joint or the PIP joint. Results & Data Vital Signs (Past 12 Hours) Vital Signs Pulse Pulse Resp BP BP Pulse Ox O2 Del Method 07/31/24 07:15 83 07/31/24 07:15 79 20 145/91 H 96 Room Air 07/31/24 03:21 84 18 141/102 H 94 Room Air 07/31/24 00:20 96 H 18 151/101 H 97 Room Air 07/31/24 00:07 90 07/30/24 23:56 100 H 18 151/101 H 97 Room Air 07/30/24 23:44 97 H 18 129/85 98 Room Air 07/30/24 20:17 101 H Diagnostic Findings XR and CT scan of the right hand were personally interpreted and reviewed. These demonstrate no acute osseous abnormalities. There does not appear to be a large abscess on the CT scan, but there does appear to be significant cellulitis.
[2024-07-31] MEDS: CYANOCOBALAMIN (B-12) 100 MCG TABLET PO SCH (08:42)
[2024-07-31] MEDS: DOXYCYCLINE HYCLATE 100 MG CAP PO SCH (08:42)
[2024-07-31] MEDS: CHOLECALCIFEROL 25 MCG (1000 UNITS) TAB PO SCH (08:42)
[2024-07-31] MEDS: PANTOprazole 40 MG TAB PO SCH (08:43)
[2024-07-31] MEDS: FOLIC ACID 1 MG TAB PO SCH (08:43)
[2024-07-31] MEDS: OXYBUTYNIN CHLORIDE XL 5 MG TABCR PO SCH (08:43)
[2024-07-31] MEDS: LOSARTAN POTASSIUM 50 MG TAB PO SCH (08:43)
[2024-07-31] MEDS ORDERED: LIDOCAINE 2% 2 ML VIAL/AMP(20MG/ML) INFIL ONE (13:19)
[2024-07-31] MEDS ORDERED: PROPOFOL IV EMULSION 10 MG/ML 20 ML VIAL IV ONE (13:19)
[2024-07-31] MEDS ORDERED: fentaNYL citrate PF 100 MCG/2 ML VIAL ONE (13:20)
[2024-07-31] MEDS ORDERED: MIDAZOLAM HCL 1 MG/ML 2ML VIAL ONE (13:20)
--- NOTE | 2024-07-31 13:29 | Anesthesiology Consultation ---
Date of Service July 31, 2024 Assessment & Plan Chart Review Chart Review: Acceptable Risk for Surgery and Patient NOT seen in Pre Admission Testing Consults Requested none ASA ASA3 Proposed Anesthesia Anesthesia Type: General Risk / Benefits Reviewed With: PT / POA / Parent / Guardian, Accepts Plan and Informed Consent Obtained History Surgery Operation Date: 07/31/24 10:15 Proposed Procedures p Incision and Drainage Right Index Finger - Román Contreras DO s Possible Extensor Tendon Repair - Román Contreras DO Height/Weight Height: 5 ft 5 in Weight: 99.1 kg Allergies Allergy/AdvReac Type Severity Reaction Status Date / Time [id number] Reductase Allergy Intermediate Muscle Pain Verified 07/03/24 08:57 Inhibitor Influenza Virus Vaccines AdvReac Intermediate Gastrointestinal Verified 07/30/24 19:57 Upset Medications Home Medications Medication Instructions Recorded Confirmed Last Taken ascorbic acid (vitamin C) 250 mg 250 mg PO QAM 06/12/24 07/30/24 07/02/24 tablet (Vitamin C) cholecalciferol (vitamin D3) 25 25 mcg PO DAILY 06/12/24 07/30/24 07/02/24 mcg (1,000 unit) chewable tablet (Vitamin D3) cyanocobalamin (vitamin B-12) 100 100 mcg PO DAILY 06/12/24 07/30/24 07/02/24 mcg tablet ezetimibe 10 mg tablet 10 mg PO PM 06/12/24 07/30/24 07/02/24 folic acid 1 mg tablet 1 mg PO QAM 06/12/24 07/30/24 07/02/24 inclisiran 284 mg/1.5 mL 1.5 mg subcut UD 06/12/24 07/30/24 06/27/24 subcutaneous syringe (Leqvio) levothyroxine 75 mcg tablet 75 mcg PO QAM 06/12/24 07/30/24 07/02/24 losartan 50 mg tablet 50 mg PO QAM 06/12/24 07/30/24 07/02/24 omeprazole 20 mg tablet,delayed 20 mg PO QAM 06/12/24 07/30/24 07/02/24 release glipizide 5 mg tablet 2.5 mg PO .DAILY W/ PREDNISONE 07/30/24 07/30/24 Unknown metformin 500 mg tablet,extended 1,000 mg PO QDD 07/30/24 07/30/24 Unknown release 24 hr methotrexate sodium 2.5 mg tablet 15 mg PO WK 07/30/24 07/30/24 Unknown oxybutynin chloride 5 mg 5 mg PO QAM 07/30/24 07/30/24 Unknown tablet,extended release 24 hr prednisone 20 mg tablet 20 mg PO QAM 07/30/24 07/30/24 Unknown Active Medications Generic Name Dose Route Start Last Admin Trade Name [facility] PRN Reason Stop Dose Admin Acetaminophen 500 mg 07/30/24 22:27 07/30/24 23:13 Acetaminophen 500 Mg Tab PO 08/29/24 22:26 500 mg Q6H PRN Administration fever/pain Cyanocobalamin 100 mcg 07/31/24 09:00 07/31/24 08:42 Cyanocobalamin (B-12) 100 Mcg Tablet PO 08/30/24 08:59 100 mcg DAILY MARJ Administration Doxycycline Hyclate 100 mg 07/31/24 09:00 07/31/24 08:42 Doxycycline Hyclate 100 Mg Cap PO 08/07/24 08:59 100 mg BID MARJ Administration Folic Acid 1 mg 07/31/24 09:00 07/31/24 08:43 Folic Acid 1 Mg Tab PO 08/30/24 08:59 1 mg QAM MARJ Administration Piperacillin Sod/Tazobactam Sod 4.5 gm in 100 mls @ 25 mls/hr 07/31/24 04:00 07/31/24 12:13 Zosyn IV 08/07/24 03:59 25 mls/hr Q8H MARJ Administration Protocol Insulin Aspart 0 units 07/30/24 23:56 07/31/24 11:19 Insulin Aspart Per Unit Charge SC 08/29/24 23:55 Not Given ACHS MARJ Levothyroxine Sodium 75 mcg 07/31/24 06:30 07/31/24 07:04 Levothyroxine Sodium 75 Mcg Tablet PO 08/30/24 06:29 75 mcg DAILYBB MARJ Administration Losartan Potassium 50 mg 07/31/24 09:00 07/31/24 08:43 Losartan Potassium 50 Mg Tab PO 08/30/24 08:59 50 mg QAM MARJ Administration Oxybutynin Chloride 5 mg 07/31/24 09:00 07/31/24 08:43 Oxybutynin Chloride Xl 5 Mg Tabcr PO 08/30/24 08:59 5 mg QAM MARJ Administration Pantoprazole Sodium 40 mg 07/31/24 09:00 07/31/24 08:43 Pantoprazole 40 Mg Tab PO 08/30/24 08:59 40 mg QAM MARJ Administration Vitamin D 25 mcg 07/31/24 09:00 07/31/24 08:42 Cholecalciferol 25 Mcg (1000 Units) Tab PO 08/30/24 08:59 25 mcg DAILY MARJ Administration NPO Date Last Intake of Fluids: 07/30/24 Time Last Intake of Fluids: 23:00 Last Intake of Fluids Comment: sip of water 1015 w/med Date Last Intake of Solids: 07/30/24 Time Last Intake of Solids: 23:00 Past Medical History Medical History HMG-CoA myositis Overactive bladder 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 per pt, no stroke hx > no cane or walker History of COVID-19 2020/2021 Diabetes mellitus, type 2 Hypothyroidism GERD (gastroesophageal reflux disease) Hyperlipidemia Hypertension Exercise / Class Metabolic Activity II 4-5 Yardwork/Stairs/Walk up hill Past Family History Family History Father Hypertension Past Surgical History Surgical History Hx of cataract extraction right History of esophagogastroduodenoscopy (EGD) History of colonoscopy History of section x3 Hx of gastric bypass History of tooth extraction History of tonsillectomy Past Anesthesia History No Hx of Anesthesia Complications and No Family Hx of Anesthesia Complications History of PONV No Hx of PONV and No Hx of Motion Sickness Social History Smoking Status: Never smoker Do You Dip or Chew Tobacco: No Hx Alcohol Use: No Hx Substance Use: No substance use type: does not use Physical Exam Vital Signs Last Vital Signs Temp 36.9 C 07/31/24 13:05 Pulse 82 07/31/24 13:05 Resp 18 07/31/24 13:05 BP 141/96 H 07/31/24 13:05 Pulse Ox 96 07/31/24 13:05 O2 Del Method Room Air 07/31/24 13:05 Constitutional + obese; no acute distress ENMT Mouth: no dentition abnormality Thyromental Distance: < 3.5 Finger Breadths Mallampati Class: II Neck normal visual inspection and trachea midline; neck extension not limited Respiratory normal respiratory effort Auscultation: lungs clear to auscultation bilaterally Cardiovascular Rate/Rhythm: regular rate and regular rhythm Heart Sounds: no murmur Vessels: no carotid bruit Musculoskeletal Spine: normal cervical ROM and no pain with cervical ROM Extremities: extremities normal to inspection; full ROM of extremities Neurologic moves all extremities Motor/Sensory: no sensory deficit Psychiatric Orientation: alert and oriented x 3 Testing Laboratory Results 07/31/24 05:00 07/31/24 05:00 07/30/24 19:25 Gram Stain - Final Finger,Right Index 07/31/24 07/31/24 11:09 07:13 POC Glucose 110 H 228 H
[2024-07-31] MEDS ORDERED: ONDANSETRON INJ 2 MG/ML 2 ML VIAL ONE (13:37)
--- NOTE | 2024-07-31 13:52 | History & Physical Bridge Note ---
Date of Service July 31, 2024 History & Physical Bridge Note I have examined the patient, reviewed the History & Physical and in the interval since the performance of the History & Physical I have noted the following changes of clinical significance: This is a pleasant 69-year-old female who presents to the emergency department 10 days after sustaining a laceration to the right dorsal index finger over the DIP joint. The patient has been doing home wound care and she has developed a significant soft tissue infection since that time. She presented to the ER last night and was noted to have red streaking on her arm, and a swollen and erythematous digit. On my evaluation this morning, the patient's exam was not concerning for flexor tenosynovitis. She has no tenderness to palpation over her flexor tendon sheath. She has mild flexed posturing of the digit, but she has painless range of motion of the digit both in flexion and extension. She does have mild fusiform swelling of the digit. She does demonstrate active flexion and extension of the PIP joint and active flexion of the DIP joint with some very weak extension of the DIP joint. My primary concern at this point is that she has either inadvertently seeded her DIP joint and caused a septic arthritis in her DIP joints or potentially has an abscess that is small and unable to be fully appreciated on the CT scan. Considering she has had this wound for 10 days, it has not healed, and it is continuing to drain, I do think that operative irrigation and debridement with evaluation of the extensor tendon would be reasonable. I explained to the patient that if the extensor tendon is lacerated, it may be inadvisable to repair it acutely in the presence of an infection, so if that were to be the case, I would refer her to my hand surgery colleagues for definitive management of her extensor tendon rupture. I explained to her the risks of the surgery in great detail. We discussed the risks include but are not limited to loss of life/limb, DVT, incomplete relief of pain, incomplete eradication of infection, need for additional surgery, digit deformity, iatrogenic injury to bone/nerve/tendon/vessel/cartilage, degenerative osteoarthrosis of the DIP joint. I explained the benefits of surgery include source control of the infection. Alternatives to surgery would be IV antibiotics and continued observation. Through shared decision making model, the patient has elected to proceed with operative management. operative plan: Right index finger irrigation and debridement with possible percutaneous pinning of DIP joint
[2024-07-31] MEDS: ceFAZolin 2000MG 2,000 MG/15 ML SYR IV ONE (14:37)
[2024-07-31] MEDS ORDERED: diphenhydrAMINE 50 MG/ML VIAL ONE (14:44)
[2024-07-31] MEDS ORDERED: ePHEDrine sulfate 50 MG/5 ML SYR ONE (14:44)
[2024-07-31] MEDS ORDERED: PHENYLEPHRINE 100MCG/ML 5ML SYR ONE ×2 (14:44)
[2024-07-31] MEDS: BUPIVACAINE 0.5 % 5 MG/1 ML MPF 30ML VIAL ONE (14:50)
[2024-07-31] MEDS: BUPIVACAINE/EPINEPHRINE 0.5% MPF 1:200,000 30 ML VIAL ONE (14:51)
[2024-07-31] MEDS: VANCOMYCIN HCL 1000MG/20ML VIAL ONE (14:51)
[2024-07-31] MEDS ORDERED: ceFAZolin 330 MG/ML 1 GM VIAL ONE (14:56)
--- NOTE | 2024-07-31 15:16 | Hospitalist Progress Note ---
Date of Service July 31, 2024 Assessment & Plan (1) Cellulitis of finger of right hand: (2) Laceration of right index finger: (3) Diabetes mellitus, type 2: (4) HMG-CoA myositis: (5) Hypertension: (6) Hyperlipidemia: (7) Hypothyroidism: Plan Pt is a 69yoF with PMHx significant for HTN, HLD, DM II (A1c: 7.0 on 06/12/2024), GIL, hypothyroidism, B12 deficiency, HMG-CoA myositis currently on prednisone and methotrexate who presented to the ER for evaluation of right i ndex finger cellulitis. 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 Continue current nightly prednisone dose at 20 mg Hold methotrexate for now given active infection. Orthopedics consulted, appreciate recs -s/p I & D on 07/31/24 Continue to monitor Continue other home meds as ordered Diet: HH/DMII DVT prophylaxis: SCDs re: possible procedure Dispo: Home once medically stable Admission and Anticipated Discharge Date Admission Date: July 30, 2024 Subjective patient was seen while still down in the emergency room before her incision and drainage Was sitting in a chair at bedside Denied fevers, chills or night sweats Noted that the pain and swelling in the right finger had decreased substantially as well as to streaking Review of Systems Review of Systems: All systems reviewed & are unremarkable except as noted in Subjective Physical Exam Physical Exam: General: Alert, oriented. No acute distress Skin: right index finger with erythema and swelling Psych: Appropriate mood and affect Neuro: decreased ROM in right index finger HEENT: NC/AT CV: RRR Resp: Breath sounds clear bilaterally, no increased effort of breathing Abdomen:Soft, nontender Extremities: No edema in lower extremities bilaterally. Results & Data Results & Data Vital Signs (Past 12 Hours) Vital Signs Temp Pulse Pulse Pulse Resp BP Pulse Ox 07/31/24 13:05 36.9 C 82 18 141/96 H 96 07/31/24 10:38 92 H 20 125/68 96 07/31/24 09:00 91 H 20 127/103 H 96 07/31/24 07:15 83 07/31/24 07:15 79 20 145/91 H 96 07/31/24 03:21 84 18 141/102 H 94 O2 Del Method 07/31/24 13:05 Room Air 07/31/24 10:38 Room Air 07/31/24 09:00 Room Air 07/31/24 07:15 07/31/24 07:15 Room Air 07/31/24 03:21 Room Air Diagnostic Findings Hand X-Ray 07/30/24 18:05 Exam(s): XR RIGHT HAND, 2 views EXAM: XR Right Hand, 2 Views CLINICAL HISTORY: Reason for exam: R index finger injury. TECHNIQUE: Frontal and lateral views of the right hand. COMPARISON: No relevant prior studies available. FINDINGS: Bones/joints: No fracture or malalignment. Degenerative changes at the first CMC joint. Soft tissues: Soft tissue wound to the tip of the second finger. No radiopaque foreign body. IMPRESSION: 1. Soft tissue wound to the tip of the second finger. No radiopaque foreign body. 2. No fracture or malalignment. Electronically signed by: Liborio Mcpherson MD 07/30/24 19:[address] 07/30/24 22:18 Exam(s): CT EXTREMITY RIGHT UPPER With Contrast IV Amt: 93 ml optiray 320 EXAM: CT Right Upper Extremity With Intravenous Contrast CLINICAL HISTORY: swelling. TECHNIQUE: Axial computed tomography images of the right upper extremity with intravenous contrast. CTDI is 19.67 mGy and DLP is 430.7 mGy-cm. Automated exposure control was utilized for the study. A dose lowering technique was utilized adhering to the principles of ALARA. CONTRAST: Patient received 93 ml optiray 320 of IV contrast COMPARISON: X-ray right hand 07/30/2024 FINDINGS: Bones/joints: Bones are diffusely osteopenic. No bone erosions or periosteal reaction. Distal tip of the distal phalanx of the second digit appears intact. No acute fracture. No dislocation. Soft tissues: Soft tissue swelling and irregularity at the dorsal aspect of the distal aspect of the second digit with mild enhancement. No discrete abscess. No radiopaque foreign body. No interstitial gas. IMPRESSION: Soft tissue swelling, irregularity and enhancement of the dorsal aspect of the distal second digit without an underlying osseous abnormality or radiopaque foreign body. Consistent with a cellulitis. Electronically signed by: Boaz Moya M.D. 07/31/24 00:48 AM
[2024-07-31] MEDS ORDERED: ONDANSETRON INJ 2 MG/ML 2 ML VIAL IV PRN (15:23)
[2024-07-31] MEDS ORDERED: ePHEDrine sulfate 50 MG/ML AMP IV PRN (15:23)
[2024-07-31] MEDS ORDERED: fentaNYL citrate PF 100 MCG/2 ML VIAL IV PRN (15:23)
[2024-07-31] MEDS ORDERED: NALOXONE HCL 0.4 MG/1 ML VIAL/CARP IV PRN (15:23)
[2024-07-31] MEDS ORDERED: PROMETHAZINE HCL 6.25 MG in SODIUM CHLORIDE 0.9% 50 ML IV PRN (15:23)
[2024-07-31] MEDS ORDERED: FLUMAZENIL 0.1 MG/1 ML 10 ML VIAL IV PRN (15:23)
[2024-07-31] MEDS ORDERED: HYDROmorphone INJ 1 MG/ML SYRINGE IV PRN (15:23)
[2024-07-31] MEDS ORDERED: ATROPINE SULFATE 0.1 MG/ML 10ML SYR IV PRN (15:23)
--- NOTE | 2024-07-31 15:30 | Post Operative Brief Note ---
Immediate Post Op Note Date of Surgery July 31, 2024 Pre & Post Diagnosis Operation Date: 07/31/24 10:15 Pre-Op Diagnosis: Right Index Finger DIP Arthrotomy with Septic Arthritis Post-Op Diagnosis: Right Index Finger DIP Arthrotomy with Septic Arthritis I identified the patient and participated in the time-out.: Yes Procedure Operation Date: 07/31/24 10:15 Actual Procedures p Incision and Drainage Right Index Finger and DIP Joint(Right) - Román Contreras DO Surgeon Román Contreras DO Pneumatic Press Hand none Estimated Blood Loss 25 Findings Consistent with Post-Op Diagnosis Laceration extended into the DIP joint. Extensor mechanism of the digit not intact. Anesthesia Type General Complications None immediately apparent Disposition Disposition: Recovery Room Overlapping Procedure I was present for: the critical portions of procedure. (the entire case)
--- NOTE | 2024-07-31 15:55 | Operative Report ---
Post Operative Report Pre & Post Diagnosis Operation Date: 07/31/24 10:15 Pre-Op Diagnosis: 1. Right Index Finger DIP Arthrotomy 2. right index finger DIP joint Septic Arthritis 3. right index finger extensor tendon laceration Post-Op Diagnosis: same I identified the patient and participated in the time-out.: Yes Procedure Operation Date: 07/31/24 10:15 Actual Procedures p Incision and Drainage Right Index Finger and DIP Joint(Right) - Román Contreras DO Surgeon Román Contreras DO Assembling Fabricator none Estimated Blood Loss 25 Findings See Below laceration over the DIP joint of the right index finger measuring approximately 3 cm in length that lacerated through the extensor tendon and entered the DIP joint Fluids see anesthesia record Specimens 2 x specimen: 1. right index DIP swab 2. right index DIP joint tissue Drains none Anesthesia Type General Complications none immediately apparent Disposition Disposition: Recovery Room Indications This is a pleasant 69-year-old female who presents to the emergency department 10 days after sustaining a laceration to the right dorsal index finger over the DIP joint. The patient has been doing home wound care and she has developed a significant soft tissue infection since that time. She presented to the ER last night and was noted to have red streaking on her arm, and a swollen and erythematous digit. On my evaluation this morning, the patient's exam was not concerning for flexor tenosynovitis. She has no tenderness to palpation over her flexor tendon sheath. She has mild flexed posturing of the digit, but she has painless range of motion of the digit both in flexion and extension. She does have mild fusiform swelling of the digit. She does demonstrate active flexion and extension of the PIP joint and active flexion of the DIP joint with some very weak extension of the DIP joint. My primary concern at this point is that she has either inadvertently seeded her DIP joint and caused a septic arthritis in her DIP joints or potentially has an abscess that is small and unable to be fully appreciated on the CT scan. Considering she has had this wound for 10 days, it has not healed, and it is continuing to drain, I do think that operative irrigation and debridement with evaluation of the extensor tendon would be reasonable. I explained to the patient that if the extensor tendon is lacerated, it may be inadvisable to repair it acutely in the presence of an infection, so if that were to be the case, I would refer her to my hand surgery colleagues for definitive management of her extensor tendon rupture. I explained to her the risks of the surgery in great detail. We discussed the risks include but are not limited to loss of life/limb, DVT, incomplete relief of pain, incomplete eradication of infection, need for additional surgery, digit deformity, iatrogenic injury to bone/nerve/tendon/vessel/cartilage, degenerative osteoarthrosis of the DIP joint. I explained the benefits of surgery include source control of the infection. Alternatives to surgery would be IV antibiotics and continued observation. Through shared decision making model, the patient has elected to proceed with operative management. operative plan: Right index finger irrigation and debridement with possible percutaneous pinning of DIP joint Description of Procedure after informed consent was obtained, the patient was correctly identified in the preoperative holding suite, the operative site was marked with the surgeon's initials, the date of surgery, and the word yes. The patient was then taken to the operative suite. The department of anesthesia administered General Anesthetic. The patient was transferred from the [facility] to the operative table. All bony prominences were well-padded. Briefing and timeout was performed. All implants were available and sterile at the time. BRIEFING AND DEBRIEFING: Pre and post operative briefing and debriefing was performed. Introductions were made, goals of the procedure were discussed, questions and concerns were addressed. The operative site markings were identified and appropriate. A time [id number] was performed, the patient's correct identity was confirmed and the correct operativ e sites were identified. The patients pre-operative antibiotic dosing and administration was confirmed along with other SCIP measures. The team was polled at the completion of the surgery and all team members were in agreement that the procedure was without complication, the counts are correct, the wound class was identified and suggestions for improvement were shared. At the patient was transferred from the operating table in supine fashion, all bony promises well-padded. A well-padded tourniquet was placed high on the patient's upper arm. Patient's right upper extremity was prepped and draped in standard sterile fashion using Betadine scrub and paint. The tourniquet was elevated without limb exsanguination and remained elevated for the duration of the case which proved to be 34 minutes. We began by sharply opening up the previous laceration that had begun to form some granulation tissue in the area. This laceration measured 3 cm in length that was curvilinear in shape and centered directly over the DIP joint of the index digit. Immediately purulence was encountered and this abscess was swabbed and sent for microbiology assessment including Gram stain, aerobic, anaerobic, AFB, fungal cultures. At this point it was immediately apparent that the laceration extended into the DIP joint of the right index finger. We took deep tissue cultures from this area as well and then began to thoroughly sharply debrided down to the level of bone using knife, iris scissors all nonviable tissue. The distal stump of the extensor tendon was quite frayed and was debrided. The proximal stump of the extensor tendon was visualized and the nonviable tissue at the end was debrided. We also debrided nonviable tissue more superficially including the skin edges which were quite friable. Next, once we are satisfied with our debridement,we turned our attention towards thorough irrigation. a total of 6 L of sterile saline each 3 L bag mixed with 1 g of vancomycin were used to irrigate the wound of the digit. While we irrigating the wound, we bluntly debrided using Ray-Anthony sponges. Next, once we had finished thorough irrigation debridement we revisualize the entire wound and were satisfied. At this point, I did consult with a hand surgery colleague that would be managing the patient's extensor tendon rupture long-term and asked his preference with regards to immobilization of the digit. He recommended against percutaneous pinning of the DIP joint and instead using a splint to keep her DIP joint straight. With this knowledge, we then turned our attention towards closure. Specific deep tissues were unable to be closed, as such we used 4-0 nylon suture in a horizontal mattress fashion to close the wound. A total of 3 sutures were placed. The wound was then covered with Betadine soaked Adaptic, sterile 4 x 4 fluffs, 2 inch Klingwrap. A AlumaFoam splint was then used to secure the DIP joint in full extension. an Dae wrap was placed over the splint and the dressing The patient tolerated this procedure well and was transferred to the PACU in stable condition. Prior to transportation to PACU, all counts were correct and a briefing was performed at the end of the case. I was present for the entire procedure. Plan: Weight bearing status: Nonweightbearing right hand Wound care: keep splint clean and dry. Will complete a dressing change in 2 days Range of motion: keep splint on VTE Prophylaxis: per medicine team. Okay from an orthopedic standpoint Antibiotics: continue broad spectrum antibiotic coverage. Consult infectious disease. Pain Control: Multimodal Discharge Plan: pending antibiotic recommendations Follow Up: with myself 1 week after discharge I attest to the content of the Intraoperative Record and any orders documented therein. Any exceptions are noted below.
--- NOTE | 2024-07-31 16:20 | Anesthesiology Progress Note ---
Date of Service July 31, 2024 Anesthesia Post Procedure Vital Signs Vital Signs: Temp Pulse Pulse Pulse Resp BP BP 07/31/24 16:15 36.8 C 99 H 12 117/75 07/31/24 16:05 96 H 14 114/65 07/31/24 15:55 98 H 16 114/65 07/31/24 15:45 94 H 16 106/56 L 07/31/24 15:35 91 H 17 128/66 07/31/24 13:25 37.1 C 93 H 21 120/66 07/31/24 13:05 36.9 C 82 18 141/96 H 07/31/24 10:38 92 H 20 125/68 07/31/24 09:00 91 H 20 127/103 H 07/31/24 07:15 83 07/31/24 07:15 79 20 145/91 H 07/31/24 03:21 84 18 141/102 H 07/31/24 00:20 96 H 18 151/101 H 07/31/24 00:07 90 07/30/24 23:56 100 H 18 151/101 H 07/30/24 23:44 97 H 18 129/85 07/30/24 20:17 101 H Pulse Ox O2 Del Method O2 Flow Rate 07/31/24 16:15 97 Room Air 0 07/31/24 16:05 96 Oxymask 4 07/31/24 15:55 100 Oxymask 4 07/31/24 15:45 100 Oxymask 4 07/31/24 15:35 99 Oxymask 8 07/31/24 13:25 94 Oxymask 8 07/31/24 13:05 96 Room Air 07/31/24 10:38 96 Room Air 07/31/24 09:00 96 Room Air 07/31/24 07:15 07/31/24 07:15 96 Room Air 07/31/24 03:21 94 Room Air 07/31/24 00:20 97 Room Air 07/31/24 00:07 07/30/24 23:56 97 Room Air 07/30/24 23:44 98 Room Air 07/30/24 20:17 Pain Intensity Right 2nd Digit: Pain Intensity: 3 Transfer of Care Handoff Completed per policy Notes Mental Status: alert / awake / arousable Patient Amnestic to Procedure: Yes Nausea / Vomiting: adequately controlled Pain: adequately controlled Airway Patency, RR, SpO2: stable & adequate BP & HR: stable & adequate Hydration State: stable & adequate Anesthetic Complications: no major complications apparent
[2024-07-31] MEDS: KETOROLAC TROMETHAMINE 15 MG/ML VIAL IV PRN (18:17)
[2024-07-31] MEDS: COUGH DROP (SUGAR FREE) LOZ 24 LOZ/1 BOX BUCCAL ONE (18:20)
[2024-07-31] MEDS: EZETIMIBE 10 MG TAB PO SCH (20:04)
[2024-07-31] MEDS: predniSONE 20 MG TAB PO SCH (20:04)
[2024-08-01 07:01] LABS: Anion Gap 7 (3-11); BUN Creatinine Ratio 16.7 (10-20); Blood Urea Nitrogen 14 mg/dl (6-23); Calcium 9.1 mg/dl (8.6-10.3); Carbon Dioxide 27 mmol/L (21-32); Chloride 105 mmol/L (98-107); Creatinine Clr Calc Pharmacy 73.7 ml/min; Glucose 277 mg/dl (70-99(Fasting)); Sodium 139 mmol/L (136-145)
[2024-08-01 07:02] LABS: Basophils # (auto) 0.02 K/uL (0.00-0.20); Basophils % (auto) 0.2 %; Eosinophils # (auto) 0.01 K/uL (0.00-0.50); Eosinophils % (auto) 0.1 %; Immature Granulocytes # (auto) 0.08 K/uL (0.01-0.20); Immature Granulocytes % (auto) 0.8 %; Lymphocytes % (auto) 8.1 %; Mean Corpuscular Hemoglobin 28.8 pg (25.0-34.0); Mean Corpuscular Hgb Conc 31.6 g/dL (32.0-36.0); Mean Corpuscular Volume 91.3 fL (80.0-100.0); Mean Platelet Volume 11.5 fL (9.4-12.4); Monocytes # (auto) 0.33 K/uL (0.11-0.59); Monocytes % (auto) 3.4 %; Neutrophils # (auto) 8.59 K/uL (1.40-6.50); Neutrophils % (auto) 87.4 %; Platelet Count 318 K/uL (130-400); RDW Coefficient of Variation 16.9 % (11.5-14.5); RDW Standard Deviation 54.9 fL (36.4-46.3); Red Blood Count 4.16 M/uL (4.20-5.40); White Blood Count 9.83 K/ul (4.8-10.8)
[2024-08-01] MEDS: LANTUS PER UNIT CHARGE SQ SCH (08:28)
[2024-08-01] MEDS ORDERED: VANCOMYCIN HCL 2,000 MG in SODIUM CHLORIDE 0.9% 500 ML IV ONE (09:16)
[2024-08-01] MEDS ORDERED: VANCOMYCIN CONSULT ACTIVE PRN (09:16)
--- NOTE | 2024-08-01 12:19 | Orthopedic Progress Note ---
Date of Service August 01, 2024 Assessment & Plan (1) Septic arthritis of hand, right: (2) Laceration of right index finger: (3) Extensor tendon laceration of hand with open wound: Plan Patient is doing well postoperative day #1 status post irrigation and debridement of right index finger septic arthritis of DIP joint. I did call and discussed the patient's case with Dr. Gagnon, Hand surgeon and intraoperatively he recommended no acute repair of extensor tendon as the patient likely requires tendon grafting due to the chronicity of this infection. He also recommended the patient follow-up with him on an outpatient basis next week to schedule extensor tendon reconstruction. I did change the patient's dressing today and her wound remains well- approximated. Erythema and swelling is much improved from previous. Cultures returning Staph aureus. Sensitivities pending. Patient is pending infectious disease consultation. Admission and Anticipated Discharge Date Admission Date: July 30, 2024 Subjective POD 1 s/p I+D R index finger Physical Exam Physical Exam: Dressings clean dry and intact. These dressings were removed and the skin examined. The wound remains well-approximated. Erythema and swelling much improved from yesterday. Results & Data Vital Signs (Past 12 Hours) Vital Signs Temp Pulse Resp BP Pulse Ox O2 Del Method 08/01/24 10:37 36.9 C 76 16 133/86 95 Room Air 08/01/24 07:01 36.7 C 77 18 113/71 95 Room Air
[2024-08-01] MEDS: DAPTOmycin 600 MG in SYRINGE 0 ML IV SCH (15:33)
--- NOTE | 2024-08-01 15:47 | Hospitalist Progress Note ---
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 Right index finger DIP joint septic arthritis Right index finger extensor tendon laceration Patient presented for evaluation of right index finger pain/swelling for the last 10 days Found to have leukocytosis Underwent I&D by orthopedics on 07/31/2024; concern for DIP joint septic arthritis. Blood cultureno growth IntraOp culture growing Staph aureus; sensitive pending Continue on current antibiotics; await sensitivity of IntraOp growth. Awaiting ID evaluation Patient will need to follow-up with Dr. brown, hand surgeon for follow-up for possible extensor tendon reconstruction. Hold methotrexate for now given active infection. Continue current nightly prednisone dose at 20 mg Hold methotrexate for now given active infection. 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 Ramos on 08/03/2023; may need to be rescheduled. Diet: HH/DMII DVT prophylaxis: SCDs re: possible procedure Dispo: Home once medically stable; ; Awaiting infectious disease input Please note the above document was generated using voice recognition software. It may contain grammatical, syntax or spelling errors. Any formal questions or concerns about the content, text or information contained within the body of this dictation should be directly addressed to the provider for clarification Admission and Anticipated Discharge Date Admission Date: July 30, 2024 Subjective Patient seen and examined at bedside. She is sitting up on a chair at the side of the bed; not in distress Denies fever, chills, chest pain. No significant events overnight Review of Systems Review of Systems: All systems reviewed & are unremarkable except as noted in Subjective Physical Exam Physical Exam: Constitutional :alert oriented x 3 respiratory: normal respiratory effort, lungs clear to auscultation, no wheeze, rales, rhonchi. Normal insp/exp effort, no accessory muscle use Cardiovascular: RRR, no murmur, no edema Vessels: no JVD or carotid bruit Chest: normal inspection of chest Abdomen: normal bowel sounds, soft, nontender, no hepatosplenomegaly Musculoskeletal: Right index finger with bandages intact; no overlying soakage. Neurologic: PERRL, EOMI, accommodation nl, no face palsy, no dysarthria CN's II- XI intact bilaterally and moves all extremities Psychiatric: A+Ox3, euthymic affect Results & Data Results & Data Vital Signs (Past 12 Hours) Vital Signs Temp Pulse Resp BP Pulse Ox O2 Del Method 08/01/24 14:58 36.5 C 101 H 18 106/69 100 Room Air 08/01/24 10:37 36.9 C 76 16 133/86 95 Room Air 08/01/24 07:01 36.7 C 77 18 113/71 95 Room Air
[2024-08-01 19:37] VITALS: TEMP 97.9
[2024-08-02 06:39] LABS: Basophils # (auto) 0.02 K/uL (0.00-0.20); Basophils % (auto) 0.2 %; Eosinophils # (auto) 0.02 K/uL (0.00-0.50); Eosinophils % (auto) 0.2 %; Hematocrit (blood only) 37.2 % (37.0-47.0); Hemoglobin 11.8 g/dl (12.0-16.0); Immature Granulocytes # (auto) 0.09 K/uL (0.01-0.20); Lymphocytes # (auto) 0.87 K/uL (1.20-3.40); Lymphocytes % (auto) 9.6 %; Mean Corpuscular Hemoglobin 28.6 pg (25.0-34.0); Mean Corpuscular Hgb Conc 31.7 g/dL (32.0-36.0); Mean Corpuscular Volume 90.3 fL (80.0-100.0); Mean Platelet Volume 9.5 fL (9.4-12.4); Monocytes # (auto) 0.49 K/uL (0.11-0.59); Monocytes % (auto) 5.4 %; Neutrophils # (auto) 7.54 K/uL (1.40-6.50); Neutrophils % (auto) 83.6 %; Platelet Count 233 K/uL (130-400); RDW Coefficient of Variation 16.7 % (11.5-14.5); RDW Standard Deviation 54.3 fL (36.4-46.3); Red Blood Count 4.12 M/uL (4.20-5.40); White Blood Count 9.03 K/ul (4.8-10.8)
[2024-08-02 07:02] LABS: BUN Creatinine Ratio 23.9 (10-20); Calcium 8.9 mg/dl (8.6-10.3); Creatinine Clr Calc Pharmacy 92.4 ml/min; Potassium 4.2 mmol/L (3.5-5.1)
[2024-08-02 07:22] VITALS: BP 109/72; RESP 16; O2SAT 95
--- NOTE | 2024-08-02 08:26 | Orthopedic Progress Note ---
Date of Service August 02, 2024 Assessment & Plan (1) Septic arthritis of hand, right: (2) Laceration of right index finger: (3) Extensor tendon laceration of hand with open wound: Plan Patient is doing well postoperative day #2 status post irrigation and debridement of right index finger septic arthritis of DIP joint. I did call and discussed the patient's case with Dr. Gagnon, Hand surgeon and intraoperatively he recommended no acute repair of extensor tendon as the patient likely requires tendon grafting due to the chronicity of this infection. He also recommended the patient follow-up with him on an outpatient basis next week to schedule extensor tendon reconstruction. I did change the patient's dressing yesterday and her wound remains well- approximated. Erythema and swelling is much improved from previous. Cultures returning guillermo sensitivie Staph aureus. Patient is pending infectious disease consultation. Admission and Anticipated Discharge Date Admission Date: July 30, 2024 Subjective patient resting comfortably this morning. no acute complaints. Review of Systems Review of Systems: All systems reviewed & are unremarkable except as noted in HPI & below Physical Exam Physical Exam: dresings c/d/i dressings not removed today. Results & Data Vital Signs (Past 12 Hours) Vital Signs Temp Pulse Resp BP Pulse Ox O2 Del Method 08/02/24 07:21 36.6 C 78 16 109/72 95 Room Air
--- NOTE | 2024-08-02 12:17 | Infectious Disease Consult ---
Date of Service August 02, 2024 Telehealth Information I performed this visit using a real-time telehealth connection between my location and the patients location ([facility]). After connecting through interactive tele-video, patient was identified by name and date of and/or wristband check.Patient (or authorized healthcare national account representative) was informed that this was a telemedicine visit and it was being conducted confidentially over secure lines. My office door was closed and no o ne else was present in the room with me.Patient (or authorized healthcare national account representative) provided consent to proceed with the visit, expressed an understanding of privacy and security of the telemedicine visit, and gave permission to have a hospital national account representative in the room in order to assist with the visit and to conduct portions of the visit, as needed. I informed the patient (or authorized healthcare national account representative) that I reviewed their record and presented the opportunity for them to ask any questions regarding the visit today. The patient agreed to participate. Assessment & Plan (1) Septic arthritis of hand, right: Plan: Assessment: Cellulitis of R index finger w/ septic arthritis of DIP jointa Laceration injury on R index finger Hx of DM2 07/31/24 - I&D of R index finger and DIP joint Recommendations: - Stop zosyn and daptomycin iv - Start cefazolin 2 gm iv q8 hours until 08/13/24 and then transition to Cefadroxil 1000 mg po bid from 08/14-08/27/24 - Check CRP now and then weekly until 08/27/24 - Check CMP and CBC w/ diff weekly until 08/13/24 - Provide probiotics while on abx therapy - F/u w/ ID outpatient clinic w/in 3-4 weeks - I am not against continuing prednisone and MTX at this time for her known condition. - ID signing off. I spent a total of 60 minutes coordinating, documenting, and providing care for this patient excluding time spent in the performance of separately billed services or time spent by another provider/QHP. 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 She developed redness on the affected finger, streaking on her arm, w/ swelling suspicious of infection while doing home wound care. No pain. No abx prior to ED visit. No fever on admission but leukocytosis. She was admitted for septic arthritis of R index finger w/ cellculitis. CT showed soft tissue swelling in dorsal aspect of the distal second digit w/o any obvious osseous involvement. She had I&D of R index finger and DIP joint (07/31/24: laceration over the DIP joint of the R index finger, 3 cm, through the extensonr tendon and DIP joint) w/ the OR cultures growing MSSA. She reports mild pain at the surgical site. No f/c, n/v, abd pain, diarrha, coughing, cp, sob, or urinary symptoms. Allergies Allergy/AdvReac Type Severity Reaction Status Date / Time [id number] Reductase Allergy Intermediate Muscle Pain Verified 07/03/24 08:57 Inhibitor Influenza Virus Vaccines AdvReac Intermediate Gastrointestinal Verified 07/30/24 19:57 Upset Home Medications Medication Instructions Recorded Confirmed Type ascorbic acid (vitamin C) 250 mg 250 mg PO QAM 06/12/24 07/30/24 History tablet (Vitamin C) cholecalciferol (vitamin D3) 25 25 mcg PO DAILY 06/12/24 07/30/24 History mcg (1,000 unit) chewable tablet (Vitamin D3) cyanocobalamin (vitamin B-12) 100 100 mcg PO DAILY 06/12/24 07/30/24 History mcg tablet ezetimibe 10 mg tablet 10 mg PO PM 06/12/24 07/30/24 History folic acid 1 mg tablet 1 mg PO QAM 06/12/24 07/30/24 History inclisiran 284 mg/1.5 mL 1.5 mg subcut UD 06/12/24 07/30/24 History subcutaneous syringe (Leqvio) levothyroxine 75 mcg tablet 75 mcg PO QAM 06/12/24 07/30/24 History losartan 50 mg tablet 50 mg PO QAM 06/12/24 07/30/24 History omeprazole 20 mg tablet,delayed 20 mg PO QAM 06/12/24 07/30/24 History release glipizide 5 mg tablet 2.5 mg PO .DAILY W/ PREDNISONE 07/30/24 07/30/24 History metformin 500 mg tablet,extended 1,000 mg PO QDD 07/30/24 07/30/24 History release 24 hr methotrexate sodium 2.5 mg tablet 15 mg PO WK 07/30/24 07/30/24 History oxybutynin chloride 5 mg 5 mg PO QAM 07/30/24 07/30/24 History tablet,extended release 24 hr prednisone 20 mg tablet 20 mg PO QAM 07/30/24 07/30/24 History Patient History Medical History HMG-CoA myositis Overactive bladder 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 per pt, no stroke hx > no cane or walker History of COVID-19 2020/2021 Diabetes mellitus, type 2 Hypothyroidism GERD (gastroesophageal reflux disease) Hyperlipidemia Hypertension Surgical History Hx of cataract extraction right History of esophagogastroduodenoscopy (EGD) History of colonoscopy History of section x3 Hx of gastric bypass History of tooth extraction History of tonsillectomy Family History Father Hypertension Social History Smoking Status: Never smoker Second Hand Exposure: No; Do You Dip or Chew Tobacco: No; Hx Alcohol Use: No Hx Substance Use: No Preferred Language: Tajik Communication Ability: Effective Hardwood Floor Finisher Required: No Beliefs That Will Affect Care: None Current Living Situation: Spouse Feels Safe at Home: Yes Assistive Devices: None Review of Systems as HPI and all others negative Physical Exam General: no acute distress Lungs: breathing comfortably Ext: post op dressing on R hand, clean Neuro: Alert and oriented x3, conversant Results & Data Vital Signs (Past 12 Hours) Vital Signs Temp Pulse Resp BP Pulse Ox O2 Del Method 08/02/24 07:21 36.6 C 78 16 109/72 95 Room Air Laboratory Results Labs WBC 14.37K ->-> 9.03K H 11.8 Plt 233K Cr 0.67 Blood cx (07/30/24): NGTD Diagnostic Findings R index finger (07/30): MSSA R index DIP (07/31): S to clinda, dapto, linez, oxa, tetra, bact and vanco 1 R index finger (07/31): S aureus CT RUE w/ iv contrast (07/30): Soft tissue swelling, irregularity and enhancement of the dorsal aspect of the distal second digit without an underlying osseous abnormality or radiopaque foreign body. Consistent with a cellulitis. Medications Administered zosyn and daptomycin iv
[2024-08-02 12:44] LABS: C Reactive Protein 1.77 mg/dl (0-0.5)
[2024-08-02] MEDS: ADVANCED PROBIOTIC 625 MG CAPSULE PO SCH (12:53)
[2024-08-02] MEDS: ceFAZolin 2000MG 2,000 MG/15 ML SYR IV SCH (14:22)
[2024-08-02 16:18] VITALS: PULSE 121
--- NOTE | 2024-08-02 16:37 | Discharge Summary ---
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 Patient reports approximately 1 week ago cut her finger on research food technologist blade. States cleaned area with soap and water and applied with Vaseline and dressing. States 4 days ago started to have drainage from laceration site and noted erythema and edema to finger. Erythema and edema have progressed and has noted red streaking up her arm. States finger is minimally tender, worse with palpation. Has limited ROM of right index finger since finger started swelling. Denies fever/chills, diaphoresis, N/V/D/C, CASTREJON, dizziness, CP, SOB, palpitations, cough, rhinorrhea, abdominal pain, paresthesias, weakness, BLE extremity edema, other rashes, urinary symptoms. In ER given tetanus shot, doxycycline, Ancef. Admission Exam Per Admitting Provider General: no distress, obese Head: normocephalic, atraumatic Eyes: conjunctiva non-injected, anicteric ENT: normal inspection external ears, nose, mucous membranes moist Neck: supple, trachea midline Lungs: clear, no respiratory distress, no wheezing/rhonchi/rales CV: tachycardia, rate 104, regular rhythm, no murmur, no pretibial edema Abd: protuberant, normal BS, soft, non-tender Ext: RUE: Right hand: index finger with diffuse edema and erythema, dorsal surface over DIP with open laceration with purulent drainage, +red streaking up dorsal surface wrist and up forearm, limited flexion and extension of DIP and PIP joints of index finger. Remaining fingers with normal appearance. LE without no cyanosis, no calf tenderness Neuro: A&O x 3, no focal deficits noted, normal affect Skin: warm, dry. as above in right hand Principal Diagnosis Right index finger DIP joint septic arthritis Right index finger extensor tendon laceration Discharge Exam Constitutional :alert oriented x 3 respiratory: normal respiratory effort, lungs clear to auscultation, no wheeze, rales, rhonchi. Normal insp/exp effort, no accessory muscle use Cardiovascular: RRR, no murmur, no edema Vessels: no JVD or carotid bruit Chest: normal inspection of chest Abdomen: normal bowel sounds, soft, nontender, no hepatosplenomegaly Musculoskeletal: Right index finger with bandages intact; no overlying soakage. Neurologic: PERRL, EOMI, accommodation nl, no face palsy, no dysarthria CN's II- XI intact bilaterally and moves all extremities Psychiatric: A+Ox3, euthymic affect Discharge Data Allergies Allergy/AdvReac Type Severity Reaction Status Date / Time [id number] Reductase Allergy Intermediate Muscle Pain Verified 07/03/24 08:57 Inhibitor Influenza Virus Vaccines AdvReac Intermediate Gastrointestinal Verified 07/30/24 19:57 Upset Consultations 07/30/24 20:28 ED Decision to Admit Stat 07/31/24 02:54 Consult Orthopedic Surgery Routine 07/31/24 08:42 Consult Infectious Diseases Routine Procedures Performed Operation Date: 07/31/24 10:15 Actual Procedures p Incision and Drainage Right Index Finger and DIP Joint(Right) - Román Contreras DO Ordered Studies 07/30/24 22:18 CT hand RT w con Stat Hospital Course (1) Cellulitis of finger of right hand: (2) Laceration of right index finger: (3) Diabetes mellitus, type 2: (4) HMG-CoA myositis: (5) Hypertension: (6) Hyperlipidemia: (7) Hypothyroidism: Plan Pt is a 69yoF with PMHx significant for HTN, HLD, DM II (A1c: 7.0 on 06/12/2024), GIL, hypothyroidism, B12 deficiency, 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 Blood cultureno growth IntraOp culture growing MSSA Patient was seen by infectious disease: Recommended cefazolin for 2 weeks followed by oral cefadroxil for 2 weeks. Ultrasounded guided PIV was placed; IV antibiotic was arranged through home health. Patient to have weekly blood work to be faxed to her primary care doctor. Also patient was instructed to follow-up with hand surgeon for possible extensor tendon reconstruction. Patient verbalized understanding of the instructions and was discharged home. Please note the above document was generated using voice recognition software. It may contain grammatical, syntax or spelling errors. Any formal questions or concerns about the content, text or information contained within the body of this dictation should be directly addressed to the provider for clarification Total Time Total Time Spent Total Time Spent (In Minutes): 45 Total Time Includes: Examination of the Patient, Discharge Planning, Medication Reconciliation, Communication With Other Providers and Other Discharge Plan Discharge Items Patient Disposition: Home - Home Health Services Reason For Visit: SEPSIS Discharge Diagnosis: Septic arthritis of DIP of right hand Activity: Resume your previous activity Non-emergency contact: Primary Care Provider Call non-emergency contact if: you have any medication questions and your symptoms worsen Follow-up/Referrals: [facility] ([facility]) [Outside] - 08/09/24 8:45 am (First appointment for dressing change and labs is , Aug 09, 2024 at 08:45. You can schedule th remaining appointments after that.) Ronny Butts MD [Primary Care Provider] - Diet: Regular Addtl Attending Provider Instructions: You were admitted to the hospital with injury to the finger. You underwent I&D by Dr. Román Contreras from orthopedic during the hospitalization. The infectious disease recommended following medication: 1) Cefazolin 2 g IV every 8 hour until August 13, 2024. 2) Starting August 14, 2024; start taking cefadroxil 1000 mg twice daily. The prescription has already been sent to your pharmacy; please do not restart it at this time and start taking it from August 14, 2024 for 14 days. You will have lab work done weekly; please have the [facility] fax the lab work to your primary care doctor. Take [id number] probiotics while you are on the antibiotic therapy.Please watch out for symptoms of diarrhea, fever, chills and seek medical attention if you experience those. Dr. Contreras recommended that you follow-up with Dr. Yan Gagnon [place] [facility] [place]. He is a hand surgeon; there is a likelihood that you might need tendon grafting due to the chronicity of this infection. Please call to make appointment with him at [facility] [place] at [phone]. Pending Studies at Discharge: No Stand-Alone Forms: My Foodist, Smoking Cessation Medications and DC Order Prescriptions: New cefadroxil 500 mg capsule 1,000 mg PO BID 14 Days Qty: 56 0RF Continued metformin 500 mg tablet extended release 24 hr 1,000 mg PO QDD oxybutynin chloride 5 mg tablet extended release 24hr 5 mg PO QAM methotrexate sodium 2.5 mg tablet 15 mg PO WK Rx Instructions: takes on wednesdays glipizide 5 mg tablet 2.5 mg PO .DAILY W/ PREDNISONE prednisone 20 mg tablet 20 mg PO QAM losartan 50 mg Tablet 50 mg PO QAM cyanocobalamin (vitamin B-12) 100 mcg Tablet 100 mcg PO DAILY levothyroxine 75 mcg Tablet 75 mcg PO QAM ascorbic acid (vitamin C) [Vitamin C] 250 mg Tablet 250 mg PO QAM folic acid 1 mg Tablet 1 mg PO QAM ezetimibe 10 mg Tablet 10 mg PO PM omeprazole 20 mg Tablet,Delayed Release (Dr/Ec) 20 mg PO QAM cholecalciferol (vitamin D3) [Vitamin D3] 25 mcg (1,000 unit) Tablet,Chewable 25 mcg PO DAILY Leqvio 284 mg/1.5 mL Syringe 1.5 mg SUBCUT UD Patient Comments: wednesdays Rx Instructions: [id number] Discharge Orders: Discharge Order (Routine); Ordered 08/02/24 Ordered By: Isiah Gongora Admission Data Admit Date/Time: 07/30/24 21:38 Attending Provider: Isiah Gongora Admit Provider: Boris Xiao Primary Care Provider: Ronny Butts Other Providers: Boris Xiao; Tereso Francis; Marquis Rivera; Richar Villaseñor I.; Alcides Dowling II; Jennifer Reynolds; Joon Borja; Abhay Nayak; Francia Norman; Román Contreras Other Interventions: Discharge Summary Assessment (RN) Last Done: 08/02/24 16:17
--- NOTE | 2024-08-03 06:06 | Coding Query ---
CODING QUERY To promote full compliance with coding requirements relating to patient care, provider participation is requested in all cases of certified professional coder uncertainty. Please assist us with the question(s) below: Coding Question(s): The following documentation is present in the Hospitalist Progress Note from 07/31/24: "Sepsis secondary to traumatic right finger cellulitis." However, in the notes following this, the documentation states "septic arthritis of right hand." Can you please clarify the patient's sepsis by placing an 'x' in the parenthesis below? Sepsis, POA and Septic Joint of Right Hand, POA ( ) Septic Joint of Right Hand only, POA ( X ) Other, please specify . Physician's Response(s): Thank you Dominique Graham Principal Diagnosis: "that condition established after study, to be chiefly responsible for occasioning the admission of the patient to the hospital for care." Co-Existing Principal Diagnosis: "when two or more diagnoses equally meet the criteria for principal diagnosis as determined by the circumstances of admission, diagnostic work up, and/or therapy provided, and the Alphabetic Index, Tabular List, or another coding guideline does not provide sequencing direction, any one of the diagnoses may be sequenced first." "When the physician has documented what appears to be a current diagnosis in the body of the record, but has not included the diagnosis in the final diagnostic statement, the physician should be asked whether the diagnosis should be added." ([facility] 2 QTR90. p3-4) [place]
--- NOTE | 2024-08-03 09:23 | Coding Query ---
DEBRIDEMENT DOCUMENTATION To promote full compliance with coding requirements relating to patient care, physician participation is requested in all cases of news videographer uncertainty. Please assist us with the question(s) below: Please place an X in the parenthesis. If other, please document the finding: Type of Debridement: (x ) Excisional Debridement- Cutting away necrotic, devitalized tissue or slough to the level of viable tissue using a sharp instrument (i.e. scalpel, scissors, etc.) ( ) Non Excisional Debridement- The removal of necrotic, devitalized tissue or slough by means of scraping, mechanical brushing, flushing, or washing (i.e. irrigation,whirlpool);minor removal of loose fragments. ( ) Other (please specify): Instrument Used: (x ) Scissors (x ) Scalpel ( ) Curette ( ) Other (please specify): Depth of Debridement: ( ) Skin ( ) Skin and Subcutaneous Tissue ( ) Skin, Subcutaneous Tissue and Muscle (x ) Skin, Subcutaneous Tissue, Muscle and Bone ( ) Other (please specify): Please Specify the Size of Debridement in cm2: 1cm2 Thank you Dominique MANZANARES
== END 2024-08-02 16:59 | disposition home health service (06) | DRG 513 ==
LOC: ED 14:54 → SUATTDRO 21:38 → EDINP 21:38 → 3E 07-31 17:05